=== PATIENT | female | born 1980 | race Caucasian/White ===

== ENCOUNTER 2019-04-15 15:51 | Outpatient (CLI) | payer OTHER, SELFPAY ==
[2019-04-15 16:03] LABS: Basophils Absolute Auto 0.04 K/mm3 (0.00-0.10); Basophils Percent Auto 0.5 % (0.0-1.0); Eosinophils Absolute Auto 0.06 K/mm3 (0.02-0.50); Eosinophils Percent Auto 0.8 % (1.0-6.0); Hematocrit 38.3 % (35.0-49.0); Hemoglobin 12.7 g/dL (12.0-15.0); Immature Granulocyte Absolute 0.05 K/mm3 (0.00-0.00); Immature Granulocyte Percent A 0.6 % (0.0-0.0); Lymphocytes Absolute Auto 1.73 K/mm3 (1.10-4.50); Lymphocytes Percent Auto 21.9 % (18.0-42.0); Mean Corpuscular HGB Conc 33.2 g/dL (32.0-36.0); Mean Corpuscular Hemoglobin 30.2 pg (27.0-31.0); Mean Platelet Volume 9.1 fl (9.2-11.8); Monocytes Percent Auto 8.8 % (2.0-11.0); Neutrophils Absolute Auto 5.3 K/mm3 (1.7-7.2); Neutrophils Percent Auto 67.4 % (50.0-70.0); Platelet Count Result 346 K/mm3 (150-420); Red Blood Count 4.21 M/mm3 (4.20-5.40); Red Cell Distribution Width 12.9 % (11.6-14.4); White Blood Count 7.9 K/mm3 (4.8-10.8)
[2019-04-15 16:23] LABS: D Dimer 0.26 mg/L (0.19-0.50)
[2019-04-15 17:23] LABS: Alanine Aminotransferase 27 U/L (14-59); Albumin Level 3.6 g/dL (3.4-5.0); Alkaline Phosphatase 53 U/L (46-116); Aspartate Amino Transferase 15 U/L (15-37); Bilirubin,Total 0.2 mg/dL (0.00-1.00); Blood Urea Nitrogen 11 mg/dL (7-18); Calcium 9.1 mg/dL (8.5-10.1); Carbon Dioxide 26 mmol/L (21-32); Chloride 103 mmol/L (98-108); Estimated Glomerular Filt Rate > 60; Ferritin 51 ng/mL (8-252); Glucose 78 mg/dL (70-99); Iron 37 ug/dL (50-170); Osmolality Calculated 288 mOsm/kg (285-295); Percent Iron Saturation 10 % (12-57); Sodium 140 mmol/L (136-145); Total Protein 7.2 g/dL (6.4-8.2)
== END 2019-04-15 15:52 | disposition home or self-care (01) ==
LOC: CHSLAB 15:54
PROVIDERS: PCP Internal Medicine; Visit Provider Nurse Practitioner Family
DX: R06.02 Shortness of breath (principal); D64.9 Anemia, unspecified
CPT/HCPCS: 36415; 80053; 82728; 83540; 83550; 85025; 85380

== ENCOUNTER 2019-10-15 11:41 | Outpatient (CLI) | payer OTHER, SELFPAY ==
[2019-10-15 23:57] LABS: SARS-CoV-2 RNA PCR Negative
== END 2019-10-15 11:42 | disposition home or self-care (01) ==
PROVIDERS: PCP Internal Medicine; Visit Provider Internal Medicine
DX: Z20.828 Contact with and (suspected) exposure to other viral communicable diseases (principal)
CPT/HCPCS: 87635; C9803; U0003

== ENCOUNTER 2020-04-22 12:17 | Outpatient (CLI) | payer OTHER, SELFPAY ==
[2020-04-23 00:59] LABS: SARS-CoV-2 RNA PCR Positive
== END 2020-04-22 12:18 | disposition home or self-care (01) ==
LOC: CHSLAB 12:20
PROVIDERS: PCP Internal Medicine; Visit Provider Internal Medicine
DX: U07.1 COVID-19 (principal)
CPT/HCPCS: C9803; U0003; U0005

== ENCOUNTER 2021-08-20 10:20 | Outpatient (CLI) | payer OTHER, SELFPAY ==
--- NOTE | ~2021-08-20 | XR_ITS ---
EXAMINATION: XR hip LT min 2V INDICATION: Left hip pain TECHNIQUE: Two views of the left hip are obtained. COMPARISON: None available FINDINGS: Bone alignment is normal. There is no fracture. There is mild osteoarthritis of the hip. Th e soft tissues are unremarkable. IMPRESSION: 1. Mild osteoarthritis without acute osseous abnormality. Reviewed, dictated and finalized at location B.
--- NOTE | ~2021-08-20 | XR_ITS ---
EXAMINATION: XR lumbar spine 2-3V DATE: 08/20/2021 10:48 INDICATION: Low back pain TECHNIQUE: Anteroposterior and lateral views of the lumbar spine, and cone-down lateral view of the l umbosacral junction were obtained. COMPARISON: None. FINDINGS: There is mild loss of intervertebral disc space height at L5-S1. The vertebral body heights and alignment are normal. There is no fracture. IMPRESSION: 1. Mild lumbar spondylosis without acute findings. Reviewed, dictated and finalized at location B.
== END 2021-08-20 10:21 | disposition home or self-care (01) ==
LOC: CHSIMG 10:22
PROVIDERS: PCP Internal Medicine; Visit Provider Internal Medicine
DX: M25.552 Pain in left hip (principal)
CPT/HCPCS: 72100; 73502

== ENCOUNTER 2021-10-19 09:51 | Outpatient (RCR) | payer OTHER, SELFPAY ==
--- NOTE | 2021-10-19 10:56 | PTOPEVAL1 ---
Evaluation Information Assessment Status Evaluation Diagnosis premmar radiculopathy Onset 06/13/21 Subjective Information patient reports she had a baby back in june. she reports after the baby was born she began having pain in the L hip with getting in the car. she reports the pain would be sharp. she reports she let it go for a while, but now more consistent with any hip moving in, bilateral buttock pain, and pain down the R thigh. she reports sitting with her leg crossed on the R will radiate pain to the brush on the R LE. she reports she has swelling and tenderness in the R foot. she reports she has a history of back issues since she was 17 . she reports she had no had problems since she was 17. she reports she has had a child prior to this june and reports she had no issues. has had xray, no MRI as of this date. Reported Pain Level Pain Score 3: Self Report Assessment PT Clinical Summary mrs. latif presents to skilled PT services for evaluation and treatment of L hip pain and R LE radicular symptoms. she presents this date with signs and symptoms of R L5/S1 radiculopathy and L JUAN LUIS. she would do well to attend skilled PT to improve her objective/functional deficits and progress towards a return to her prior level functional activity performance/quality of life. Plan of Care Interventions Electrical Stimulation,Hot Pack/Cold Pack,Manual Therapy,Neuro Re-education,Patient/Caregiver Educati,Therapeutic Activities,Therapeutic Exercise PT Services Indicated Yes Treatment Frequency and 2x weekly for 12 visits Duration These treatments will address the objective and functional deficits as defined above. The patient will be advanced safely and appropriately in order for the patient to progress towards his/her prior level of function. Additional exercises will be introduced and as well as a comprehensive home exercise program upon discharge, if needed, ?to ensure carryover of functional gains achieved in the clinic. This treatment plan has been reviewed and agreement upon by the patient.
--- NOTE | 2021-12-09 10:50 | PTOPDC ---
Assessment and note entered by JT File, PT Evaluation Information Assessment Status Discharge Diagnosis lubmar radiculopathy Onset 06/13/21 Subjective Information patient reports her back and R LE feel great. she reports she has no pain and no radicular symptoms any longer. however, she reports the L hip continues to feel worse. she reports she is uanble to sit in a butterfly posture due to immobility in the L hip. she reports she also is unable to lui after he kids due to popping and severe pain in the L hip. she reports the pain is the front of the L hip/groin area. Reported Pain Level Pain Score 0,6: Self Report Assessment PT Clinical Summary mrs. latif presents to skilled PT services for her 12th skilled therapy visit this date. as of this date, her lower back pain, and R radicular symptoms are resolved, and she has met all goals for the lower back and R LE. however, she continues to have pain and symptoms in the groin of the L hip that are progressively worsening more than improving. she presnts this date again with signs and symptoms consistent with potential JUAN LUIS or labral pathology of the L hip. she would do well to DC skilled PT this date, and follow up with MD. suggest patient have MRI of the L hip and consult with ortho. Plan of Care Treatment Frequency and DC to MD follow up with suggestion of MRI of the L Duration hip and ortho consult.
== END 2021-12-09 16:40 | disposition home or self-care (01) ==
LOC: CHSPT 09:51
PROVIDERS: PCP Internal Medicine; Visit Provider Internal Medicine
DX: M25.552 Pain in left hip (principal)
CPT/HCPCS: 97014; 97110; 97140; 97161; G0283

== ENCOUNTER 2021-10-22 09:30 | Outpatient (CLI) | payer OTHER, SELFPAY ==
--- NOTE | ~2021-10-22 | XR_ITS ---
EXAMINATION: XR foot RT min 3V DATE: 10/22/2021 09:55 INDICATION: Right foot pain TECHNIQUE: Dorsoplantar, lateral, and 2 oblique views of the right foot were obtained. COMPARISON: 12/10/2018 FINDINGS: There is no fracture, dislocation, or subluxation. The joint spaces and soft tissues are no rmal. A plantar calcaneal enthesophyte is noted. IMPRESSION: 1. No acute osseous abnormality. Reviewed, dictated and finalized at location B.
== END 2021-10-22 09:31 | disposition home or self-care (01) ==
PROVIDERS: PCP Internal Medicine; Visit Provider Nurse Practitioner Family
DX: M79.671 Pain in right foot (principal)
CPT/HCPCS: 73630

== ENCOUNTER 2021-11-04 08:47 | Outpatient (CLI) | payer OTHER, SELFPAY ==
--- NOTE | ~2021-11-04 | US_ITS ---
EXAMINATION: US thyroid DATE: 11/04/2021 09:30 INDICATION: Abnormal thyroid function. TECHNIQUE: Multiple ultrasound images of the thyroid were obtained. COMPARISON: Ultrasound 01/19/17 FINDINGS: The right thyroid lobe measures 6.1 x 2.0 x 1.5 cm. The left thyroid lobe measures 6.3 x 2.5 x 1.9 c m. In the right thyroid lobe, there is a 1.6 cm solid, hypoechoic, wider than tall nodule with chalino h margin without echogenic foci (TR4), new from 01/19/17. In the left thyroid lobe, there is a 3.5 cm solid, hypoechoic, wider than tall nodule with irregular margin and punctate echogenic foci (TR5), in creased from 1.8 cm on 01/19/17. IMPRESSION: 1. Multinodular goiter. Ultrasound-guided fine-needle aspiration of both nodules is recommended. Reviewed, dictated and finalized at location A. IMPRESSION: 1. Multinodular goiter. Ultrasound-guided fine-needle aspiration of both nodule s is recommended.
== END 2021-11-04 08:48 | disposition home or self-care (01) ==
LOC: CHSIMG 08:48
PROVIDERS: PCP Internal Medicine; Visit Provider Internal Medicine
DX: R94.6 Abnormal results of thyroid function studies (principal)
CPT/HCPCS: 76536

== ENCOUNTER 2021-12-30 11:44 | Outpatient (CLI) | payer OTHER, SELFPAY ==
--- NOTE | ~2021-12-30 | XR_ITS ---
EXAMINATION: XR chest 2V 12/30/2021 12:12 INDICATION: Chest pain. Dizziness. PROCEDURE: 2 view chest COMPARISON: 02/01/2017 FINDINGS: The lungs are clear. The cardiomediastinal silhouette is within normal limits. There are no pleural effusions. There is no pneumothorax suspected. There are chronic mild superior endplate compression deformities of the mid thoracic spine. IMPRESSION: 1: NO ACUTE CARDIOPULMONARY DISEASE. Reviewed, dictated and finalized at location A. OGEN TREATER
[2021-12-30 11:58] LABS: Basophils Absolute Auto 0.05 K/mm3 (0.00-0.10); Basophils Percent Auto 0.9 % (0.0-1.0); Eosinophils Absolute Auto 0.14 K/mm3 (0.02-0.50); Eosinophils Percent Auto 2.5 % (1.0-6.0); Hematocrit 43.1 % (35.0-49.0); Hemoglobin 13.9 g/dL (12.0-15.0); Immature Granulocyte Absolute 0.02 K/mm3 (0.00-0.00); Immature Granulocyte Percent A 0.4 % (0.0-0.0); Lymphocytes Absolute Auto 1.78 K/mm3 (1.10-4.50); Lymphocytes Percent Auto 31.6 % (18.0-42.0); Mean Corpuscular HGB Conc 32.3 g/dL (32.0-36.0); Mean Corpuscular Hemoglobin 29.8 pg (27.0-31.0); Mean Corpuscular Volume 92.3 fL (78.0-102.0); Mean Platelet Volume 9.3 fl (9.2-11.8); Monocytes Absolute Auto 0.78 K/mm3 (0.10-0.90); Monocytes Percent Auto 13.8 % (2.0-11.0); Neutrophils Absolute Auto 2.9 K/mm3 (1.7-7.2); Neutrophils Percent Auto 50.8 % (50.0-70.0); Platelet Count Result 330 K/mm3 (150-420); Red Blood Count 4.67 M/mm3 (4.20-5.40); Red Cell Distribution Width 12.3 % (11.6-14.4); White Blood Count 5.6 K/mm3 (4.8-10.8)
[2021-12-30 12:08] LABS: D Dimer 0.19 mg/L (0.19-0.50)
[2021-12-30 12:34] LABS: Alanine Aminotransferase 23 U/L (14-59); Alkaline Phosphatase 76 U/L (46-116); Anion Gap 6 mmol/L (8-16); Aspartate Amino Transferase 12 U/L (15-37); Bilirubin,Total 0.3 mg/dL (0.00-1.00); Blood Urea Nitrogen 13 mg/dL (7-18); Calcium 8.8 mg/dL (8.5-10.1); Carbon Dioxide 31 mmol/L (21-32); Chloride 105 mmol/L (98-108); Creatine Kinase 64 U/L (26-192); Estimated Glomerular Filt Rate > 60; Glucose 89 mg/dL (70-99); NT Pro B Type Natriuretic Pept 27 pg/mL (0-125); Osmolality Calculated 293 mOsm/kg (285-295); Potassium 4.2 mmol/L (3.5-5.1); Sodium 142 mmol/L (136-145); Total Protein 7.9 g/dL (6.4-8.2)
[2021-12-30 12:39] LABS: Troponin I < 4.0 ng/L (0.00-60.4)
== END 2021-12-30 11:45 | disposition home or self-care (01) ==
LOC: CHSLAB 11:45
PROVIDERS: PCP Internal Medicine; Visit Provider Internal Medicine
DX: R42 Dizziness and giddiness (principal); R07.9 Chest pain, unspecified
CPT/HCPCS: 36415; 71046; 80053; 82550; 82553; 83880; 84484; 85025; 85380

== ENCOUNTER 2022-01-08 09:01 | Outpatient (CLI) | payer OTHER, SELFPAY | END 2022-01-08 09:02 | disposition home or self-care (01) | LOC: CHSIMG 09:02 | PROVIDERS: PCP Internal Medicine; Visit Provider Internal Medicine | DX: M25.552 Pain in left hip (principal) | CPT/HCPCS: 73721 ==

== ENCOUNTER 2022-01-24 09:31 | Outpatient (CLI) | payer OTHER, SELFPAY ==
--- NOTE | ~2022-01-24 | MR_ITS ---
EXAMINATION: MR hip LT wo con DATE: 01/24/2022 11:41 INDICATION: Persistent left hip pain TECHNIQUE: Magnetic resonance imaging (MRI) of the left hip was performed without intravenous contra st. Sequences included full-field axial PD-weighted FS FSE and T1-weighted FSE, coronal of the pelvis with PD-weighted FS FSE, T2-weighted FSE and T1-weighted FSE, small field of view of the left hip w ith axial PD-weighted FS FSE, sagittal PD-weighted FS FSE, coronal PD-weighted FS FSE and coronal T2 weighted FSE. Additional radial T1-weighted FGR oriented orthogonal to the acetabular rim were obtai nelia for evaluation of the labrum. COMPARISON: None FINDINGS: Bones/labrum/cartilage: Alignment is normal. No fracture, avascular necrosis or pathologic marrow replacing process. Moderat e to severe osteoarthritis at the left hip with full/near full-thickness cartilage loss with underlyi ng subarticular edema-like signal change at the anterosuperior acetabulum and juxtaposed anterosuperi or aspect of the femoral head. Additional deep chondral ulceration at the posterior aspect of the rig ht femoral head. Moderate size marginal osteophytes about the left femoral head. There is a tear of t he superolateral to posterior superior left acetabular labrum. Less severe osteoarthritis at the righ t hip with mild partial-thickness cartilage loss anterosuperiorly with mild subarticular cystic santana e at the anterosuperior right acetabulum. Moderate disc height loss with degenerative endplate change s at L5-S1. 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 Moderate left and mild right sacroi liac osteoarthritis. Small sclerotic likely bone island at the left posterior iliac spine. Fluid: Is a large amount fluid at the right hip joint. Small left hip joint effusion. Mild increased fluid s ignal underlying the right greater trochanteric insertion of the right gluteus medius tendon consiste nt with mild right gluteus medius bursitis. Soft tissues: Normal and symmetric muscle bulk and signal in the pelvis and visualized proximal thighs. Mild tendin opathy without tear at the anterior right gluteus medius tendon. The bilateral iliopsoas, remaining g luteal and proximal hamstring tendons are normal. Tiny nabothian cysts at the cervix and small bilate ral ovarian follicles the largest on the right measuring 1.4 cm. Limited evaluation of visceral organ s of the pelvis is otherwise unremarkable. No pathologically enlarged pelvic/inguinal lymphadenopath y. IMPRESSION: 1. Moderate to severe left hip osteoarthritis with tear of the superolateral to posterior superior le ft acetabular labrum and likely reactive small left hip joint effusion. 2. Mild right and moderate left sacroiliac osteoarthritis. 3. Mild right gluteus medius medius bursitis with mild tendinopathy without discrete tear of the ante rior right gluteus medius tendon. 4. Moderate lumbosacral spondylosis. Reviewed, dictated and finalized at location A. R AND GAS HELPER IMPRESSION: 1. Moderate to severe left hip osteoarthritis with tear of the superolateral to posterior superior left acetabular labrum and likely reactive small left hip j oint effusion. 2. Mild right and moderate left sacroiliac osteoarthritis. 3. Mild right gluteus medius medius bursitis with mild tendinopathy without dis crete tear of the anterior right gluteus medius tendon. 4. Moderate lumbosacral spondylosis.
== END 2022-01-24 09:32 | disposition home or self-care (01) ==
PROVIDERS: PCP Internal Medicine; Visit Provider Internal Medicine
DX: M53.3 Sacrococcygeal disorders, not elsewhere classified (principal); M47.896 Other spondylosis, lumbar region; M16.0 Bilateral primary osteoarthritis of hip
CPT/HCPCS: 73721

== ENCOUNTER 2022-05-05 16:19 | Outpatient (CLI) | payer OTHER, SELFPAY ==
--- NOTE | ~2022-05-05 | XR_ITS ---
AP and oblique views of the left ribs Clinical History: Pain Findings: No rib fracture is seen. Osseous alignment is anatomic. Lungs are clear, without focal cons olidation or pleural effusion. Cardiomediastinal contour is within normal limits. Soft tissues are un remarkable. Impression: No rib fracture is seen. Reviewed, dictated and finalized at [facility]. Impression: No rib fracture is seen.
[2022-05-05 16:48] LABS: Basophils Absolute Auto 0.05 K/mm3 (0.00-0.10); Basophils Percent Auto 0.6 % (0.0-1.0); Eosinophils Absolute Auto 0.21 K/mm3 (0.02-0.50); Eosinophils Percent Auto 2.5 % (1.0-6.0); Hematocrit 38.7 % (35.0-49.0); Hemoglobin 12.5 g/dL (12.0-15.0); Immature Granulocyte Absolute 0.03 K/mm3 (0.00-0.00); Immature Granulocyte Percent A 0.4 % (0.0-0.0); Lymphocytes Absolute Auto 2.83 K/mm3 (1.10-4.50); Lymphocytes Percent Auto 33.3 % (18.0-42.0); Mean Corpuscular HGB Conc 32.3 g/dL (32.0-36.0); Mean Corpuscular Hemoglobin 29.6 pg (27.0-31.0); Mean Corpuscular Volume 91.7 fL (78.0-102.0); Monocytes Absolute Auto 0.71 K/mm3 (0.10-0.90); Monocytes Percent Auto 8.4 % (2.0-11.0); Neutrophils Absolute Auto 4.7 K/mm3 (1.7-7.2); Neutrophils Percent Auto 54.8 % (50.0-70.0); Platelet Count Result 401 K/mm3 (150-420); Red Blood Count 4.22 M/mm3 (4.20-5.40); Red Cell Distribution Width 13.3 % (11.6-14.4); White Blood Count 8.5 K/mm3 (4.8-10.8)
[2022-05-05 17:24] LABS: Alanine Aminotransferase 17 U/L (14-59); Albumin Level 4.2 g/dL (3.4-5.0); Alkaline Phosphatase 86 U/L (46-116); Anion Gap 9 mmol/L (8-16); Aspartate Amino Transferase 15 U/L (15-37); Bilirubin,Total 0.2 mg/dL (0.00-1.00); Blood Urea Nitrogen 12 mg/dL (7-18); Calcium 8.8 mg/dL (8.5-10.1); Carbon Dioxide 29 mmol/L (21-32); Chloride 104 mmol/L (98-108); Estimated Glomerular Filt Rate > 60; Glucose 81 mg/dL (70-99); Osmolality Calculated 292 mOsm/kg (285-295); Potassium 4.4 mmol/L (3.5-5.1); Sodium 142 mmol/L (136-145); Total Protein 7.6 g/dL (6.4-8.2)
[2022-05-05 17:28] LABS: CRP < 0.5 mg/dL (0.0-0.9)
== END 2022-05-05 16:20 | disposition home or self-care (01) ==
LOC: CHSLAB 16:22
PROVIDERS: PCP Internal Medicine; Visit Provider Nurse Practitioner Family
DX: R07.81 Pleurodynia (principal); R94.31 Abnormal electrocardiogram [ECG] [EKG]; R07.9 Chest pain, unspecified
CPT/HCPCS: 36415; 71100; 80053; 83735; 85025; 86140

== ENCOUNTER 2023-03-16 09:46 | Outpatient (CLI) | payer OTHER, SELFPAY ==
[2023-03-16 10:57] LABS: Free T4 Free Thyroxine 0.65 ng/dL (0.76-1.46); Thyroid Stimulating Hormone 0.05 uIU/mL (0.36-3.74)
[2023-03-19 11:03] LABS: Total Triiodothyronine (T3) 136.3 ng/dL (76-181)
== END 2023-03-16 09:47 | disposition home or self-care (01) ==
LOC: CHSLAB 09:50
PROVIDERS: PCP Internal Medicine
DX: E04.1 Nontoxic single thyroid nodule (principal); R79.89 Other specified abnormal findings of blood chemistry
CPT/HCPCS: 36415; 84439; 84443; 84480

== ENCOUNTER 2023-06-02 12:08 | Outpatient (CLI) | payer OTHER, SELFPAY ==
[2023-06-02 12:36] LABS: Basophils Absolute Auto 0.05 K/mm3 (0.00-0.10); Basophils Percent Auto 0.4 % (0.0-1.0); Eosinophils Percent Auto 0.9 % (1.0-6.0); Hematocrit 38.7 % (35.0-49.0); Hemoglobin 12.5 g/dL (12.0-15.0); Immature Granulocyte Absolute 0.05 K/mm3 (0.00-0.00); Immature Granulocyte Percent A 0.4 % (0.0-0.0); Lymphocytes Absolute Auto 2.07 K/mm3 (1.10-4.50); Lymphocytes Percent Auto 17.7 % (18.0-42.0); Mean Corpuscular HGB Conc 32.3 g/dL (32-36); Mean Corpuscular Hemoglobin 29.1 pg (27.0-31.0); Mean Platelet Volume 9.3 fl (9.2-11.8); Monocytes Absolute Auto 1.08 K/mm3 (0.10-0.90); Monocytes Percent Auto 9.2 % (2.0-11.0); Neutrophils Absolute Auto 8.37 K/mm3 (1.70-7.20); Neutrophils Percent Auto 71.4 % (50.0-70.0); Platelet Count Result 358 K/mm3 (150-420); Red Cell Distribution Width 13.4 % (11.6-14.4); White Blood Count 11.7 K/mm3 (4.8-10.8)
[2023-06-02 12:39] LABS: Appearance Urine Clear (Clear); Bilirubin Urine Negative (Negative); Blood Urine Trace-intact (Negative); Color Urine Light Yellow (Yellow); Glucose Urine UA Negative (Negative); Ketones Urine Negative (Negative); Leukocyte Esterase Ur 1+ (Negative); Nitrate Urine Negative (Negative); Protein Urine Negative (Negative); Specific Grav Ur <= 1.005 (1.010-1.020); Urobilinogen Urine 0.2 mg/dL (0.2-1.0)
[2023-06-02 12:44] LABS: Add Urine Microscopic? YES; Bacteria Urine Trace /hpf; RBC Urine 0-2 /hpf (0-2); Squamous Epithelial Cell Urine Few /hpf (Few); WBC Urine 0-3 /hpf (0-3)
[2023-06-02 13:46] LABS: Alanine Aminotransferase 26 U/L (14-59); Albumin Level 3.9 g/dL (3.4-5.0); Alkaline Phosphatase 73 U/L (46-116); Anion Gap 9 mmol/L (4-12); Aspartate Amino Transferase 14 U/L (15-37); Bilirubin,Total 0.6 mg/dL (0.00-1.00); Blood Urea Nitrogen 7 mg/dL (7-18); Calcium 8.6 mg/dL (8.5-10.1); Carbon Dioxide 28 mmol/L (21-32); Chloride 104 mmol/L (98-108); Cholesterol 174 mg/dL (0-200); Estimated Glomerular Filt Rate > 60; Free T3 3.29 pg/mL (2.18-3.98); Free T4 Free Thyroxine 0.78 ng/dL (0.76-1.46); Glucose 85 mg/dL (70-99); HDL Direct 51 mg/dL (40-60); LDL Cholesterol Calculated 91 mg/dL (<130); Osmolality Calculated 289 mOsm/kg (285-295); Potassium 4.1 mmol/L (3.5-5.1); Sodium 141 mmol/L (136-145); Thyroid Stimulating Hormone 0.03 uIU/mL (0.36-3.74); Total Protein 7.2 g/dL (6.4-8.2); Triglycerides 158 mg/dL (0-150)
[2023-06-05 15:48] LABS: Anti Cyclic Citrullinated Pept 40 UNITS
[2023-06-06 10:15] LABS: Uric Acid 4.4 mg/dL (2.6-6.0)
== END 2023-06-02 12:09 | disposition home or self-care (01) ==
LOC: CHSLAB 12:10
PROVIDERS: PCP Internal Medicine; Visit Provider Internal Medicine
DX: E78.5 Hyperlipidemia, unspecified (principal); M13.0 Polyarthritis, unspecified; G89.29 Other chronic pain
CPT/HCPCS: 36415; 80053; 80061; 81001; 84439; 84443; 84481; 84550; 85025; 86038; 86039; 86140; 86200

== ENCOUNTER 2023-06-19 12:50 | Outpatient (CLI) | payer OTHER, SELFPAY ==
--- NOTE | 2023-06-19 12:57 | ECG_ITS ---
SEE SCANNED COPY FOR CONFIRMED REPORT MTDD
== END 2023-06-19 12:51 | disposition home or self-care (01) ==
LOC: CHSCARD 12:53
PROVIDERS: PCP Internal Medicine; Visit Provider Internal Medicine
DX: R00.2 Palpitations (principal); R00.1 Bradycardia, unspecified; R94.31 Abnormal electrocardiogram [ECG] [EKG]
CPT/HCPCS: 93005

== ENCOUNTER 2023-10-19 14:13 | Outpatient (CLI) | payer OTHER, SELFPAY ==
--- NOTE | ~2023-10-19 | XR_ITS ---
EXAMINATION: XR chest 2V 10/19/2023 15:04 INDICATION: Preop PROCEDURE: 2 view chest COMPARISON: 12/30/2021 FINDINGS: The lungs are clear. The cardiomediastinal silhouette is within normal limits. There are no pleural effusions. There is no pneumothorax suspected. IMPRESSION: 1: NO ACUTE CARDIOPULMONARY DISEASE. Reviewed, dictated and finalized at location B.
== END 2023-10-19 14:14 | disposition home or self-care (01) ==
PROVIDERS: PCP Internal Medicine; Visit Provider Internal Medicine
DX: Z01.818 Encounter for other preprocedural examination (principal)
CPT/HCPCS: 71046

== ENCOUNTER 2024-01-29 14:00 | Outpatient (CLI) | payer OTHER, SELFPAY ==
--- NOTE | ~2024-01-29 | MM_ITS ---
EXAMINATION: MM screening valery BI w suhail HISTORY: Screening TECHNIQUE: Craniocaudal and mediolateral oblique 3-D tomosynthesis images were obtained and synthetic 2-D images were generated. CAD analysis was submitted and interpreted. COMPARISON: No prior mammogram is available for comparison at this institution. BREAST PARENCHYMAL COMPOSITION: Not Dense: The breasts are almost entirely fatty. FINDINGS: There is no evidence of suspicious mass, calcification, or architectural distortion to sugg est malignancy in either breast. There has been no suspicious interval change. IMPRESSION: 1. No mammographic evidence of malignancy. 2. Recommend routine screening mammography in one year. BI-RADS Category 1: Negative Reviewed, dictated and finalized at location B. HIATRIC NURSE
== END 2024-01-29 14:01 | disposition home or self-care (01) ==
LOC: CHSIMG 14:01
PROVIDERS: PCP Internal Medicine; Visit Provider Internal Medicine
DX: Z12.31 Encounter for screening mammogram for malignant neoplasm of breast (principal)
CPT/HCPCS: 77063; 77067

== ENCOUNTER 2024-06-27 18:22 | Emergency (ER) | payer OTHER, SELFPAY ==
--- OUTSIDE RECORDS SUMMARY | 2024-06-27 18:25 | XMS_ITS | Referral Summary ---
Author Organization [facility] Address [address] [place] [address] Care Team Providers Care Addiction Counselor Name Role Phone Jordan Mann MD Primary Care Provider [phone] Ottoniel aB MD Unavailable [phone] Allergies Active Allergy Reactions Criticality Noted Date Comments Adhesive Itching Low 01/17/2024 Morphine Unknown,Hives,Rash Medium 03/03/2017 Sutures Redness Low 01/17/2024 Absorbable sutures caused redness/irritation Medications sertraline (ZOLOFT) 50 mg tablet Take 1 tablet (50 mg total) by mouth daily 03/07/2022 Active methIMAzole (TAPAZOLE) 5 mg tablet Take 3 tablets (15 mg total) by mouth daily 08/01/2023 Active HYDROcodone-ozzy taminophen (NORCO) 5-325 mg per tabletIndicatio ns:Pain Take 1-2 tablets by mouth every 4 (four) hours as needed for pain 30 tablet 01/10/2024 Active Active Problems Problem Noted Date Diagnosed Date Rupture of operation wound 01/16/2024 Surgical wound, non healing 01/05/2024 Wound dehiscence, surgical 01/05/2024 Aftercare following right hip joint replacement surgery 11/30/2023 Multilevel spine pain 04/13/2023 Hip abductor tendinitis, left 04/13/2023 History of arthroplasty of left hip 04/13/2023 Aftercare following left hip joint replacement s urgery 08/11/2022 Nodular thyroid disease 03/03/2017 Assessment & Plan (04/04/2017 9:22 AM BUTTON PUNCHER): Differential diagnosis would include benign nodule (macrofollicular or adenomatoid/hyperplastic nodules, colloid adenomas, nodular goiter, and Richelle's thyroiditis) vs thyroid carcinoma ( follicular , papillary ) FNA indicated and performed If benign, will follow up with serial ultrasound Otherwise, patient to follow up with Dr Martinez to consider surgery . Assessment & Plan (03/03/2017 12:22 PM BUTTON PUNCHER): Patient is noted to have a dominant solid nodule in the left lobe of the thyroid measuring 1.6 x 1.1 x 1.8 cm. There were also a couple other hypoechoic nodules reported in question whether there is possible represent punctate calcifications. My examination of this patient is otherwise unremarkable. I will schedule patient for an ultrasound-guided fine-needle aspiration biopsy. Further treatment recommendations pending completed workup. Resolved Problems Problem Noted Date Diagnosed Date Resolved Date Primary osteoarthritis of right hip 10/21/2023 12/25/2023 Primary osteoarthritis of left hip 06/22/2022 08/11/2022 Social History Tobacco Use Types Packs/Day Years Used Date Smoking Tobacco: Former Cigarettes Q uit: 09/13/2016 Smokeless Tobacco: Never Alcohol Use Standard Drinks/Week Comments Yes 0 (1 standard drink = 0.6 oz pur e alcohol) AUDIT-C Answer Date Recorded Q1: How often do you have a drink containing alc ohol? Monthly or less 01/17/2024 Q2: How many drinks containi ng alcohol do you have on a typical day when you are drinking? 1 or 2 01/17/2024 Q3: How often do you have si x or more drinks on one occasion? Never 01/17/2024 Personal Safety Answer Date Recorded Have you ever been in or are you currently in a harmful physical or emotional relationship or is someone making you feel afraid or unsafe? Denies 01/17/2024 Comments No Sex and Gender Information Value Date Recorded Sex Assigned at Not on file Legal Sex Female 3:18 PM BUTTON PUNCHER Gender Identity Female 04/19/2023 11:37 AM BUTTON PUNCHER Sexual Orientation Straight 04/19/2023 11 :37 AM BUTTON PUNCHER Last Filed Vital Signs Vital Sign Reading Time Taken Comments Blood Pressure 122/79 01/23/2024 11:35 AM BUTTON PUNCHER Pulse 80 01/23/2024 11:35 AM BUTTON PUNCHER Temperature 36.4 C (97.6 F) 01/17/2024 3:00 PM BUTTON PUNCHER Respiratory Rate 18 01/17/2024 3:00 PM BUTTON PUNCHER Oxygen Saturation 99% 01/17/2024 3:00 PM BUTTON PUNCHER Inhaled Oxygen Concentration - - Weight 105.7 kg (233 lb) 01/23/2024 11:35 AM BUTTON PUNCHER Height 175.3 cm (5' 9 ) 01/23/2024 11:35 AM BUTTON PUNCHER Body Mass Index 34.41 01/23/2024 11:35 AM BUTTON PUNCHER Plan of Treatment Not on file Medical Devices Implanted Type Area Elevator Repairer Device Identifier Shelf Expiration Date Model / Serial / Lot [employer] [place] 56mm Sector Hip Shell Acetabular Gription Sterile Latex Free [id number] - [id number] Implanted:Qty: 1 on 07/06/2022 by Ottoniel Ba MD at [facility] Left: Hip [employer] 05/13/2032 [id number] / / [id number] [employer] [place] 56mm 36mm Hip Neutral Liner Acetabular Altrx Sterile Latex Free [id number] - [id number] Implanted:Qty: 1 on 07/06/2022 by Ottoniel Ba MD at [facility] Left: Hip [employer] 04/13/2027 [id number] / / [id number] [employer] [place] 6.5mm 25mm Acetabular Cancellous Screw Bone Sterile 1217-25-500 - [id number] Implanted:Qty: 1 on 07/06/2022 by Ottoniel Ba MD at [facility] Left: Hip [employer] 01/13/2032 1217-25-500 / / [id number] [employer] Actis 99mm Collar Hip 2 01/26 High Offset Taper Stem Femoral [id number] - [id number] Implanted:Qty: 1 on 07/06/2022 by Ottoniel Ba MD at [facility] Left: Hip [employer] 02/13/2032 [id number] / / [id number] [employer] Articul/Grant 36mm Cementless Hip +8.5mm 12/14 Taper Head Femoral Latex Free 1362-36330 - [id number] Implanted:Qty: 1 on 07/06/2022 by Ottoniel Ba MD at [facility] Left: Hip [employer] 05/14/2027 1365-36-330 / / [id number] [employer] Articul/Grant 36mm Cementless Hip +8.5mm 12/14 Taper Head Femoral Latex Free 1367-36330 - [id number] Implanted:Qty: 1 on 11/01/2023 by Ottoniel Ba MD at [facility] Right: Hip [employer] [id number] 08/12/2028 1364-36330 / / [id number] [employer] [place] 54mm Sector Hip Shell Acetabular Gription Sterile Latex Free [id number] - [id number] Implanted:Qty: 1 on 11/01/2023 by Ottoniel Ba MD at [facility] Right: Hip [employer] [id number] 07/13/2033 [id number] / / [id number] [employer] [place] 54mm 36mm Hip Neutral Liner Acetabular Altrx Sterile Latex Free [id number] - [id number] Implanted:Qty: 1 on 11/01/2023 by Ottoniel Ba MD at [facility] Right: Hip [employer] [id number] 09/12/2028 [id number] / / [id number] [employer] [place] 6.5mm 25mm Acetabular Cancellous Screw Bone Sterile 1217-25-500 - [id number] Implanted:Qty: 1 on 11/01/2023 by Ottoniel Ba MD at [facility] Right: Hip [employer] [id number] 07/13/2033 1217-25-500 / / [id number] [employer] Actis 99mm Collar Hip 2 01/26 High Offset Taper Stem Femoral [id number] - [id number] Implanted:Qty: 1 on 11/01/2023 by Ottoniel Ba MD at [facility] Right: Hip [employer] [id number] 03/15/2032 [id number] / / [id number] Insurance [place] A[place] Advance Directives For more information, please contact: [phone] * Full Code (Latest Code Status on File) Date Activated Date Inactivated Comments 11/01/2023 10:36 AM 11/01/2023 7:05 PM * Full Code Date Activated Date Inactivated Comments 07/06/2022 12:22 PM 07/06/2022 7:53 PM Care Teams Addiction Counselor Relationship Specialty Start Date End Date Jordan Mann MD PCP - General Internal Medicine 10/23/21 Ottoniel Ba MD [address] [place] [address] DR MENDOZA [address] [place] [id number] Surgeon Orthopedic Surgery 07/06/22
--- OUTSIDE RECORDS SUMMARY | 2024-06-27 18:25 | XMS_ITS | Encounter Summary ---
Author Organization [facility] Address [address] [place] [address] Phone Care Team Providers Care Soda Fountain Manager Name Role Phone Jordan Mann MD Primary Care Provider [phone] Jordan Mann MD Primary Care Provider [phone] Ottoniel Ba MD Unavailable [phone] Encounter Details Date Type Department Care Team (Late st Contact Info) Description 04/04/2017 Orders Only [facility] ProviderJoe MD [address] [place] [id number] Social History Tobacco Use Types Packs/Day Years Used Date Smoking Tobacco: Former Cigarettes Q uit: 09/13/2016 Smokeless Tobacco: Never Alcohol Use Standard Drinks/Week Comments Yes 0 (1 standard drink = 0.6 oz pur e alcohol) Comments Unknown Sex and Gender Information Value Date Recorded Sex Assigned at Not on file Legal Sex Female 3:18 PM ASSAULT BOAT [employer] Gender Identity Female 04/19/2023 11:37 AM ASSAULT BOAT [employer] Sexual Orientation Straight 04/19/2023 11 :37 AM ASSAULT BOAT [employer] documented as of this encounter Plan of Treatment Not on file documented as of this encounter Procedures Procedure Name Priority Date/Time Associated Diagnosis Comments CYTOLOGY 04/04/2017 12:00 AM ASSAULT BOAT [employer] documented in this encounter Results * CYTOLOGY (04/04/2017 12:00 AM ASSAULT BOAT [employer]) Narrative 04/04/2017 12:00 AM ASSAULT BOAT [employer] Ordered by an unspecified provider. us Historical Provider LAB CYTOLOGY ORDERABLES F inal Result documented in this encounter Visit Diagnoses Not on filedocumented in this encounter Care Teams Soda Fountain Manager Relationship Specialty Start Date End Date Jordan Mann MD PCP - General Internal Medicine 02/01/17 10/22/21 Jordan Mann MD PCP - General Internal Medicine 10/23/21 Ottoniel Ba MD [address] [place] [address] [place] [address] Surgeon Orthopedic Surgery 07/06/22 documented as of this encounter
--- OUTSIDE RECORDS SUMMARY | 2024-06-27 18:25 | XMS_ITS | Clinical Summary ---
Author Organization [facility] Address [address] [place] [address] Care Team Providers Care Vegetable Buncher Name Role Phone Jordan Mann MD Primary Care Provider [phone] Ottoniel Ba MD Unavailable [phone] Allergies Active Allergy Reactions Criticality Noted Date [...] 03/03/2017 Assessment & Plan (04/04/2017 9:22 AM HEMATOLOGY TECHNICIAN): Differential diagnosis would include benign nodule (macrofollicular or adenomatoid/hyperplastic nodules, colloid adenomas, nodular goiter, and Richelle's thyroiditis) vs thyroid carcinoma ( follicular , papillary ) FNA indicated and performed If benign, will follow up with serial ultrasound Otherwise, patient to follow up with Dr Martinez to consider surgery . Assessment & Plan (03/03/2017 12:22 PM HEMATOLOGY TECHNICIAN): Patient is noted to have a dominant [...] Primary osteoarthritis of left hip 06/22/2022 08/11/2022 Surgical History Surgery Date Site/Laterality Comments FL FLUORO GUIDED INJECTION HIP LEFT 04/01/2022 Left DILATION AND CURETTAGE OF UTERUS TUBAL LIGATION FLUORO GUIDED INJECTION HIP RIGHT 07/20/2023 Right JOINT REPLACEMENT 07/06/2022 Left hip TOTAL HIP ARTHROPLASTY 11/01/2023 Right HIP SURGERY 01/10/2024 Right I & D right hip Medical History Medical History Date Comments Anxiety Slow (sinus) heartbeat patient s tated her heart rate was around 58-60 PONV (postoperative nausea and vomiting) Hypothyroidism Family History Medical History Relation Name Comments Cancer Maternal Grandfather Cancer Maternal Grandmother Cancer Mother's Sister Relation Name Status Comments Maternal Grandfather Maternal Grandmother Mother's Sister Social History Tobacco Use Types Packs/Day Years [...] on file Legal Sex Female 3:18 PM HEMATOLOGY TECHNICIAN Gender Identity Female 04/19/2023 11:37 AM HEMATOLOGY TECHNICIAN Sexual Orientation Straight 04/19/2023 11 :37 AM HEMATOLOGY TECHNICIAN Obstetrics History Last Filed Vital Signs Vital Sign Reading Time Taken Comments Blood Pressure 122/79 01/23/2024 11:35 AM HEMATOLOGY TECHNICIAN Pulse 80 01/23/2024 11:35 AM HEMATOLOGY TECHNICIAN Temperature 36.4 C (97.6 F) 01/17/2024 3:00 PM HEMATOLOGY TECHNICIAN Respiratory Rate 18 01/17/2024 3:00 PM HEMATOLOGY TECHNICIAN Oxygen Saturation 99% 01/17/2024 3:00 PM HEMATOLOGY TECHNICIAN Inhaled Oxygen Concentration - - Weight 105.7 kg (233 lb) 01/23/2024 11:35 AM HEMATOLOGY TECHNICIAN Height 175.3 cm (5' 9 ) 01/23/2024 11:35 AM HEMATOLOGY TECHNICIAN Body Mass Index 34.41 01/23/2024 11:35 AM HEMATOLOGY TECHNICIAN Plan of Treatment Health Maintenance Due Date Last Done Comments Breast Cancer Screening-Mammogram 1980 Hepatitis C Screening 1980 Varicella Vaccines (1 of 2 - 13+ 2-dose series) 1993 Regular Well Visit/Exam 18-64 1998 Depression Screening 04/04/2018 04/04/2017 Cervical Cancer Screening 07/15/2020 07/16/2019 Influenza Vaccine (Season Ended) 2024 11/13/2019 DTaP/Tdap/Td Vaccine (4 - Td or Tdap) 04/22/2031 04/21/2021, 09/13/2019, 06/11/2018 Hepatitis B Screening Completed 07/18/2018 , 06/21/2018 HPV Vaccines Aged Out No longer eligi ble based on patient's age to complete this topic Pneumococcal vaccine <65 Aged Out No longer eligible based on patient's age to complete this topic Medical Devices Implanted Type Area Test Lead Device Identifier Shelf Expiration Date Model / Serial / Lot [employer] [place] 56mm Sector Hip Shell Acetabular Gription Sterile Latex Free [id number] - [id number] Implanted:Qty: 1 on 07/06/2022 by Ottoniel Ba MD at [facility] Left: Hip [employer] 05/13/2032 [id number] / / [id number] [employer] [place] 56mm 36mm Hip Neutral Liner Acetabular Altrx Sterile Latex Free [id number] - [id number] Implanted:Qty: 1 on 07/06/2022 by Ottoniel Ba MD at [facility] Left: Hip [employer] 04/13/2027 [id number] / / [id number] [employer] [place] 6.5mm 25mm Acetabular Cancellous Screw Bone Sterile 1217-25-500 - [id number] Implanted:Qty: 1 on 07/06/2022 by Ottoniel Ba MD at [facility] Left: Hip [employer] 01/13/2032 1217-25-500 / / [id number] [employer] [place] 99mm Collar Hip 2 01/26 High Offset Taper Stem Femoral [id number] - [id number] Implanted:Qty: 1 on 07/06/2022 by Ottoniel Ba MD at [facility] Left: Hip [employer] 02/13/2032 [id number] / / [id number] [employer] Articul/Grant 36mm Cementless Hip +8.5mm 12/14 Taper Head Femoral Latex Free 1365-36330 - [id number] Implanted:Qty: 1 on 07/06/2022 by Ottoniel Ba MD at [facility] Left: Hip [employer] 05/14/2027 1365-36-330 / / [id number] [employer] Articul/[place] 36mm Cementless Hip +8.5mm 12/14 Taper Head Femoral Latex Free 1365-36-330 - [id number] Implanted:Qty: 1 on 11/01/2023 by Ottoniel Ba MD at [facility] Right: Hip [employer] [id number] 08/12/2028 1365-36-330 / / [id number] [employer] [place] 54mm Sector Hip Shell Acetabular Gription Sterile Latex Free [id number] - [id number] Implanted:Qty: 1 on 11/01/2023 by Ottoniel Ba MD at [facility] Right: Hip [employer] [id number] 07/13/2033 [id number] / / [id number] [employer] [place] 54mm 36mm Hip Neutral Liner Acetabular Altrx Sterile Latex Free [id number] - [id number] Implanted:Qty: 1 on 11/01/2023 by Ottoniel Ba MD at [facility] Right: Hip [employer] [id number] 09/12/2028 [id number] / / [id number] [employer] [place] 6.5mm 25mm Acetabular Cancellous Screw Bone Sterile 1217-25-500 - [id number] Implanted:Qty: 1 on 11/01/2023 by Ottoniel Ba MD at [facility] Right: Hip [employer] [id number] 07/13/2033 1217-25-500 / / [id number] [employer] Act[place] 99mm Collar Hip 2 01/26 High Offset Taper Stem Femoral [id number] - [id number] Implanted:Qty: 1 on 11/01/2023 by Ottoniel Ba MD at [facility] Right: Hip [employer] [id number] 03/15/2032 [id number] / / [id number] Insurance [employer] [facility] IDPA [employer] [place] Advance Directives For more information, please contact: [phone] * Full Code (Latest Code Status on File) Date Activated Date Inactivated Comments 11/01/2023 10:36 AM 11/01/2023 7:05 PM * Full Code Date Activated Date Inactivated Comments 07/06/2022 12:22 PM 07/06/2022 7:53 PM Care Teams Vegetable Buncher Relationship Specialty Start Date End Date Jordan Mann MD PCP - General Internal Medicine 10/23/21 Ottoniel Ba MD [address] [place] [address] Surgeon Orthopedic Surgery 07/06/22
--- OUTSIDE RECORDS SUMMARY | 2024-06-27 18:25 | XMS_ITS | Clinical Summary ---
Author Organization [facility] Address [address] [place] [address] Care Team Providers Care Mail Carrier Technician Name Role Phone Jordan Mann MD Primary Care Provider [phone] Camilo Pichardo MD Unavailable [phone] Bernadine Irby MD Unavailable Ottoniel Ba MD Unavailable [phone] Allergies Active Allergy Reactions Criticality Noted Date Comments Morphine Hives,Rash Low 11/18/2019 Medications sertraline (ZOLOFT) 50 MG tablet Take 1.5 tablets (75 mg total) by mouth daily. 07/21/2021 Active methIMAzole (TAPAZOLE) 5 MG tablet Take 3 tablets (15 mg total) by mouth daily. 08/01/2023 Active meloxicam (MOBIC) 15 MG tablet Take 1 tablet (15 mg total) by mouth daily. Active aspirin EC (ECOTRIN) 81 MG tablet Take 1 tablet (81 mg total) by mouth daily. Active ferrous sulfate, 65 mg elemental, 325 (65 FE) MG tablet Take 1 tablet (325 mg total) by mouth daily. 11/01/2023 Active ondansetron (ZOFRAN) 8 MG tablet Take 1 tablet (8 mg total) by mouth. 11/01/2023 Active oxyCODONE-aceta minophen (PERCOCET) 5-325 MG tablet Take 1 tablet by mouth every 4 (four) hours as needed. 11/03/2023 Active Senna (SENOKOT) 8.6 MG tablet Take 1 tablet (8.6 mg total) by mouth daily. Active Active Problems Problem Noted Date Diagnosed Date Pre-eclampsia, severe, condition ([facility]) 07/03/2021 ([facility]) 06/29/2021 Abnormal EKG 03/16/2021 Chest pain 03/16/2021 hypertension ([facility]) 11/18/2019 Advanced maternal age in multigravida ([facility]) 11/11/2019 Class 1 obesity due to exces s calories without serious comorbidity with body mass index (BMI) of 31.0 to 31.9 in adult 11/12/2018 Thyroid nodule 11/12/2018 Encounters Date Type Department Care Team Description 06/10/2024 Telephone [facility] [address] [place] [address] Bernadine Irby MD Error 06/10/2024 Orders Only [facility] [address] [place] [address] Bernadine Irby MD 05/30/2024 1:45 PM CDT Office Visit [facility] [address] [address] Bernadine Irby MD Heart Problem 05/30/2024 Scan [facility] [address] [place] [address] Scanned, Doc Pccl 05/29/2024 Telephone [facility] [address] [place] [address] Bernadine Irby MD Appointment Reminder 05/29/2024 Travel 05/27/2024 Orders Only [facility] [address] [place] [address] Bernadine Irby MD 04/10/2024 Telephone [facility] [address] [address] Bernadine Irby MD Appointment Reminder 04/01/2024 Telephone [facility] [address] [place] [address] Bernadine Irby MD Prior Authorization from Last 3 Months Immunizations Immunization Administration Dates Next Due Fluzone 6 Months+ Quad (0.5 mL Prefilled Syringe ) 11/13/2019 Family History Medical History Relation Comments Cancer Maternal Grandfather Diabetes Maternal Grandfather Cancer Maternal Grandmother Diabetes Maternal Grandmother Relation Status Comments Maternal Grandfather Maternal Grandmother Social History Tobacco Use Types Packs/Day Years Used Date Smoking Tobacco: Former Cigarettes Q uit: 11/10/2016 Smokeless Tobacco: Never Tobacco Cessation:Counseling Given: Not Answered Alcohol Use Standard Drinks/Week Comments Yes 0 (1 standard drink = 0.6 oz pur e alcohol) 1-2/month Humiliation, Afraid, Rape, and Kick questionnair e Answer Date Recorded Within the last year, have y ou been afraid of your partner or ex-partner? Patient declined 07/03/2021 Within the last year, have y ou been humiliated or emotionally abused in other ways by your partner or ex-partner? Patient declined 07/03/2021 Within the last year, have y ou been kicked, hit, slapped, or otherwise physically hurt by your partner or ex-partner? Patient declined 07/03/2021 Within the last year, have y ou been raped or forced to have any kind of sexual activity by your partner or ex-partner? Patient declined 07/03/2021 Social Connection and Isolation Panel [NHANES] A nswer Date Recorded In a typical week, how many times do you talk on the phone with family, friends, or neighbors? Patient declined 07/03/2021 How often do you get togethe r with friends or relatives? Patient declined 07/03/2021 How often do you attend jehovah's witness or judaism serv ices? Patient declined 07/03/2021 Do you belong to any clubs o r organizations such as jehovah's witness groups, unions, fraternal or athletic groups, or school groups? Patient declined 07/03/2021 How often do you attend meet ings of the clubs or organizations you belong to? Patient declined 07/03/2021 Are you , , di vorced, , never , or living with a partner? Patient declined 07/03/2021 AUDIT-C Answer Date Recorded Q1: How often do you have a drink containing alc ohol? Patient declined 07/03/2021 Q2: How many drinks containi ng alcohol do you have on a typical day when you are drinking? Patient declined 07/03/2021 Q3: How often do you have si x or more drinks on one occasion? Patient declined 07/03/2021 Overall Financial Resource Strain (CARDIA) Answe r Date Recorded How hard is it for you to pa y for the very basics like food, housing, medical care, and heating? Patient declined 07/03/2021 [facility] - Occupational Stress Questionnaire Answer Date Recorded Do you feel stress - tense, restless, nervous, or anxious, or unable to sleep at night because your mind is troubled all the time - these days? Patient declined 07/03/2021 Exercise Vital Sign Answer Date Recorde d On average, how many days pe r week do you engage in moderate to strenuous exercise (like a brisk walk)? Patient declined On average, how many minutes do you engage in exercise at this level? Patient declined 07/03/2021 Hunger Vital Sign Answer Date Recorded Within the past 12 months, y ou worried that your food would run out before you got the money to buy more. Patient declined Within the past 12 months, t he food you bought just didn't last and you didn't have money to get more. Patient declined PRAPARE - Transportation Answer Date Re corded In the past 12 months, has l ack of transportation kept you from medical appointments or from getting medications? Patient declined 07/03/2021 In the past 12 months, has l ack of transportation kept you from meetings, work, or from getting things needed for daily living? Patient declined 07/03/2021 Housing Stability Vital Sign Answer Dann e Recorded In the last 12 months, was t here a time when you were not able to pay the mortgage or rent on time? Patient refused 07/04/19 22 In the last 12 months, how many places have you lived? 1 07/03/2021 In the last 12 months, was t here a time when you did not have a steady place to sleep or slept in a group home (including now)? Patient refused 07/03/2021 Depression Answer Date Recor ded Last EPDS Total Score 6 07/02/2021 Last EPDS Self Harm Result Unrecognized value Comments No Sex and Gender Information Value Date Recorded Sex Assigned at Female 11/12/2019 12:41 PM CDT Legal Sex Female 4:57 PM CDT Gender Identity Female 11/12/2019 12:41 PM CDT Sexual Orientation Not on file Last Filed Vital Signs Vital Sign Reading Time Taken Comments Blood Pressure 105/68 11/09/2023 3:13 PM CDT Pulse 72 11/09/2023 3:13 PM CDT Temperature 36.3 C (97.4 F) 09/15/2023 5:53 PM CDT Respiratory Rate 16 11/09/2023 3:13 PM CDT Oxygen Saturation 99% 11/09/2023 3:13 PM CDT Inhaled Oxygen Concentration - - Weight 105.2 kg (232 lb) 11/09/2023 3:13 PM CDT Height 175.3 cm (5' 9 ) 11/09/2023 3:13 PM CDT Body Mass Index 34.26 11/09/2023 3:13 PM CDT Plan of Treatment Upcoming Encounters Date Type Department Care Team (Late st Contact Info) Description 06/05/2025 11:45 AM CDT Office Visit [facility] [address] Bernadine Irby MD [address] [place] [id number] Health Maintenance Due Date Last Done Comments ASCVD LDL 1980 Annual Physical 05/29/1983 Pneumococcal Vaccine: Pediatrics (0 to 5 Years) and At-Risk Patients (6 to 49 Years) (1 of 2 - PCV) 05/29/1999 Cervical Cancer Screening Pa p with HPV Testing (Age 30 to 64) Every 5 Years 2010 Hepatitis B Vaccines (3 of 3 - 19+ 3-dose series) 12/22/2018 07/18/2018, 06/21/2018 Mammogram Screening 2020 Cervical Cancer Screening Pa p Smear (Age 30 to 64) Every 3 Years 07/15/2022 07/16/2019 Cervical Cancer Screening wi th HPV 07/15/2022 COVID-19 Vaccine ( - 2023-2 5 season) 2023 DTaP, Tdap and Td Vaccines ( 4 - Td or Tdap) 04/22/2031 04/21/2021, 09/13/2019, 06/11/2018 Hepatitis C Completed 01/04/2021, 05/08/2019 HPV Vaccines Aged Out No longer eligi ble based on patient's age to complete this topic Meningococcal B Vaccine Aged Out No l onger eligible based on patient's age to complete this topic Meningococcal Vaccine Aged Out No zaida dallas eligible based on patient's age to complete this topic RSV Immunizations Under 20 Months Aged Out No longer eligible b ased on patient's age to complete this topic Procedures Procedure Name Priority Date/Time Associated Diagnosis Comments ELECTROCARDIOGRAM, TRACING Routine 05/30/2024 Other forms of angina pectoris HEPATITIS C ANTIBODY Routine 01/04/2021 10:30 AM HYPERBARIC TECHNOLOGIST Encounter for supervision of normal , unspecified, unspecified trimester ([facility]) CYTOPATH CERV/VAG THIN LAYER Routine 07/16/2019 7:27 AM CDT from Last 3 Months or Most Recently Relevant to Health Maintenance Results * NOT [facility] - ELECTROCARDIOGRAM, TRACING (05/30/2024) Bernadine Irby MD PROCEDURES-UNRESULTED Final Resu lt * HEPATITIS C ANTIBODY (01/04/2021 10:30 AM HYPERBARIC TECHNOLOGIST) HEPATITIS C AB NON-REACTI VE NON-REACT ALEXI 01/04/2021 7:06 PM HYPERBARIC TECHNOLOGIST [facility] Comment: ANTIBODIES TO HCV NOT DETECTED. DOES NOT EXCLUDE THE POSSIBILITY OF EXPOSURE TO HCV. 01/04/2021 10:3 0 AM HYPERBARIC TECHNOLOGIST Shira Breen APRN LABORATORY Final Resu lt [facility] [address] [place] [address], [id number] * Cytopath Cerv/Vag Thin Layer (07/16/2019 7:27 AM CDT) THIN PREP PAP [address] [address] Department of Pathology Pathology Report CERVICAL/VAGINAL PAP SMEAR REPORT Name: DANETTE NICHOLS Age: 4 1980 (Age: 39) Location: [facility] Sex: F Collected Date: 07/16/2019 Hospital #: [id number] Date Received: 07/18/2019 Date Reported: 07/23/2019 Provider: ZARA PICHARDO MD INTERPRETATION CERVICAL/ENDOCERVICA L: SATISFACTORY FOR EVALUATION. ENDOCERVICAL/TRANSFO RMATION ZONE COMPONENT PRESENT. NEGATIVE FOR INTRAEPITHELIAL LESION OR MALIGNANCY. NEGATIVE FOR HIGH RISK HPV. The FDA approved Aptima HPV assay is an in vitro nucleic acid amplification test for the qualitative detection of E6/E7 viral messenger RNA (mRNA) from 14 high-risk types of human papillomavirus (HPV) in cervical specimens. The high-risk HPV types detected by the assay include: 16,18,31,33,35,39,45 ,51,52,56,58,59,66, and 68. Electronically Signed Out By GABY Reyes (ASCP) CLINICAL HISTORY Z12.4 PAP HISTORY-UNKNOWN COPY CHASER SURGICAL HISTORY-NEG ThinPrep Pap Test with screening HR HPV testing requested, with reflex HPV 16/18 genotyping on negative cytology, positive HR HPV Date of Last Menstrual Period: UNKNOWN Menstrual Status: SPECIMEN SUBMITTED CERVICAL/ENDOCERVICA L Specimen Received:1 Thin Prep Vial, Image Assisted Pap (SMD) Please note: The Pap smear is not a diagnostic test. It is a screening test. Negative results on combined screening (Pap test and HPV-DNA) have a high negative predictive value (99.1-100 percent) for cervical cancer. The pap test is not effective in detecting cervical adenocarcinoma. [facility] 07/16/2019 7:27 AM CDT 07/18/2019 7:27 AM CDT Comment:CERVICAL/ENDOCERVICA L us Zara Morrow MD PATHOLOGY/CYTOLOGY OR DERABLES Final Result [facility] [address] [place] [address], from Last 3 Months or Most Recently Relevant to Health Maintenance Insurance [employer] Advance Directives * Full Code (Latest Code Status on File) Date Activated Date Inactivated Comments 07/03/2021 6:53 PM 07/05/2021 12:50 PM * Full Code Date Activated Date Inactivated Comments 06/29/2021 9:18 PM 07/02/2021 4:36 PM * Full Code Date Activated Date Inactivated Comments 11/18/2019 4:44 PM 11/20/2019 5:46 PM * Full Code Date Activated Date Inactivated Comments 11/11/2019 8:32 PM 11/14/2019 2:12 PM Care Teams Mail Carrier Technician Relationship Specialty Start Date End Date Jordan Mann MD [address] [place] [address] PCP - General INTERNAL MEDICINE 11/11/19 Camilo Pcihardo MD [address] [place] [phone] Consulting Physician OBGYN 03/11/21 Bernadine Irby MD [address] [place] [address] Consulting Physician CARDIOVASCULAR DISEASE 03/11/21 Ottoniel Ba MD [address] [address] ORTHOPAEDIC SURGERY 07/01/22
--- OUTSIDE RECORDS SUMMARY | 2024-06-27 18:25 | XMS_ITS | Clinical Summary ---
Author Organization [facility] Address [address] [place] [address] Phone Care Team Providers Care Rn Behavioral Health Name Role Phone Jordan Mann MD Primary Care Provider [phone] Amita Armstrong MD Unavailable Allergies Active Allergy Reactions Criticality Noted Date Comments Morphine Hives 03/03/2017 Medications sertraline (ZOLOFT) 50 MG Tablet 2 Active ondansetron (ZOFRAN-ODT) 8 MG TABLET DISPERSIBLE Take 8 mg by mouth every 8 hours as needed. Active ferrous sulfate 325 (65 Fe) MG Tablet Take 325 mg by mouth daily. Active oxyCODONE-acetam inophen (PERCOCET) 5-325 MG Tablet Take 1 Tablet by mouth every 4 hours as needed. Active senna (SENOKOT) 8.6 MG Tablet Take 1 Tablet by mouth daily. Active Ascorbic Acid (VITAMIN C PO) Take by mouth. Active Pseudoephedrine- Acetaminophen (SM NON-ASPRIN SINUS PO) Take by mouth. Active meloxicam (MOBIC) 15 MG Tablet Take 15 mg by mouth daily. Active methIMAzole (TAPAZOLE) 5 MG Tablet Take 3 Tablets by mouth daily. 270 Tablet 5 Active methIMAzole (TAPAZOLE) 5 MG Tablet Take 3 Tablets by mouth daily. 270 Tablet 4 06/14/19 25 Discontinu ed(Reorder ) Active Problems Problem Noted Date Diagnosed Date Thyroid nodule 11/12/2018 Class 1 obesity due to exces s calories without serious comorbidity with body mass index (BMI) of 31.0 to 31.9 in adult 11/12/2018 Encounters Date Type Department Care Team Description 06/13/2024 MyChart RX Renewal [facility] [place] [address] [place] [address] Amita Armstrong MD Medication Renewal Reviewed from Last 3 Months Immunizations Immunization Administration Dates Next Due Hepatitis B Vaccine 07/18/2018,06/21/2018 Influenza Vaccine, Quadrivalent, PF 11/13/2019 TDAP Vaccine 04/21/2021,09/13/2019,06/11/2018 Family History Medical History Relation Name Comments No Known Problems Father Cancer Maternal Grandfather Diabetes Maternal Grandmother No Known Problems Mother No Known Problems Sister Relation Name Status Comments Father Maternal Grandfather Maternal Grandmother Mother Alive Sister Alive Social History Tobacco Use Types Packs/Day Years Used Date Smoking Tobacco: Former Cigarettes Q uit: 10/12/2017 Smokeless Tobacco: Never Tobacco Cessation:Counseling Given: Not Answered Alcohol Use Standard Drinks/Week Comments Not Currently 0 (1 standard drink = 0.6 oz pur e alcohol) Socially Sexually Active Control Partners Comments Yes Male Comments No Sex and Gender Information Value Date Recorded Sex Assigned at Not on file Legal Sex Female 2:15 PM CDT Gender Identity Not on file Sexual Orientation Not on file Last Filed Vital Signs Vital Sign Reading Time Taken Comments Blood Pressure 130/82 11/06/2023 8:09 AM CDT Pulse 86 11/06/2023 8:09 AM CDT Temperature 36.4 C (97.5 F) 11/06/2023 8:09 AM CDT Respiratory Rate 18 11/06/2023 8:09 AM CDT Oxygen Saturation 100% 11/06/2023 8:09 AM CDT Inhaled Oxygen Concentration - - Weight 107 kg (236 lb) 11/06/2023 8:09 AM CDT Height 175.3 cm (5' 9 ) 03/02/2023 10:10 AM HEALTH SAFETY ENGINEER Body Mass Index 34.85 03/02/2023 10:10 AM HEALTH SAFETY ENGINEER Plan of Treatment Upcoming Encounters Date Type Department Care Team (Late st Contact Info) Description 07/11/2024 9:15 AM CDT Office Visit [facility] [place] [address] [place] [address] Amita Armstrong MD [address] [address] Health Maintenance Due Date Last Done Comments Mammogram 1980 HPV/Cotest 2010 Hepatitis B Immunization (3 of 3 - 19+ 3-dose series) 12/22/2018 07/18/2018, 06/21/2018 Discussion re Starting/Frequency of Mammograms 2020 Cervical Cancer Screening (CCS) 07/15/2022 Pap Smear 07/15/2022 07/16/2019 SARS-COV-2 Immunization ( season) 2023 Influenza Immunization (Seas on Ended) 2024 11/13/2019 Td Immunization Every 10 Yea rs (Adults With 1 Tdap) 04/22/2031 04/21/2021, 09/13/2019, 06/11/2018 Respiratory Syncytial Virus (RSV) Immunization (Adult) (1 - 1-dose 75+ series) 05/29/2055 Hepatitis C Virus (HCV) Screening Completed 01/04/2021 DTaP/Tdap/Td Immunization Discontinued 2021, 09/13/2019, 06/11/2018 Human Papillomavirus (HPV) Immunization Aged Out No longer eligible based on patient's age to complete this topic Meningococcal Immunization (ACWY) Aged Out No longer eligible based on patient's age to complete this topic Pneumococcal Immunization Combined Aged Out No longer eligible based on patient's age to complete this topic Rotavirus Immunization Aged Out No lo nger eligible based on patient's age to complete this topic Insurance MEDICAID AETNA [facility] Care Teams Rn Behavioral Health Relationship Specialty Start Date End Date Jordan Mann MD [address], [place] [id number] PCP - General Internal Medicine 09/12/18 Amita Armstrong MD [address] [phone] Consulting Physician Endocrinology 12/07/21
--- OUTSIDE RECORDS SUMMARY | 2024-06-27 18:25 | XMS_ITS | Encounter Summary ---
Author Organization [facility] Healthcare Address [address] [place] [address] Care Team Providers Care Margin Trimmer Name Role Phone Jordan Mann MD Primary Care Provider [phone] Ottoniel Ba MD Unavailable [phone] Reason for Visit * Reason Onset Date Comments Appointment Reminder Call 03/31/2022 Confir med Encounter Details Date Type Department Care Team (Late st Contact Info) Description 03/31/2022 Telephone [facility] [address] [place] [address] Yodit Patel RT Appointment Reminder Call (Confirmed ) Social History Tobacco Use Types Packs/Day Years Used Date Smoking Tobacco: Former Cigarettes Q uit: 09/13/2016 Smokeless Tobacco: Never Alcohol Use Standard Drinks/Week Comments Yes 0 (1 standard drink = 0.6 oz pur e alcohol) Comments Unknown Sex and Gender Information Value Date Recorded Sex Assigned at Not on file Legal Sex Female 3:18 PM DISTRICT OPERATIONS MANAGER Gender Identity Female 04/19/2023 11:37 AM DISTRICT OPERATIONS MANAGER Sexual Orientation Straight 04/19/2023 11 :37 AM DISTRICT OPERATIONS MANAGER documented as of this encounter Plan of Treatment Not on file documented as of this encounter Visit Diagnoses Not on filedocumented in this encounter Care Teams Margin Trimmer Relationship Specialty Start Date End Date Jordan Mann MD PCP - General Internal Medicine 10/23/21 Ottoniel Ba MD [address] [place] [address] [address] [place] [address] Surgeon Orthopedic Surgery 07/06/22 documented as of this encounter
[2024-06-27 18:26] VITALS: BP 129/99; PULSE 103; RESP 16; TEMP 37.2; O2SAT 99
[2024-06-27 19:10] VITALS: BP 157/98
[2024-06-27] MEDS: predniSONE 20 MG TABLET PO (19:40)
[2024-06-27] MEDS: cefTRIAXone 1 GM, LIDOCAINE 1% LOCAL INJ 2.1 ML IM (19:40)
[2024-06-27] MEDS: TETANUS,DIPHTHERIA,AC PERTUSSIS ADULT 0.5 ML (ADACEL) IM (19:41)
--- OUTSIDE RECORDS SUMMARY | 2024-06-27 19:56 | XMS_ITS | Referral Summary ---
Author Organization [facility] Address [address] [place] [address] Care Team Providers Care Stone Processing Machine Operator Name Role Phone Jordan Mann MD Primary Care Provider [phone] Ottoniel Ba MD Unavailable [phone] Allergies Active Allergy Reactions Criticality Noted Date [...] 03/03/2017 Assessment & Plan (04/04/2017 9:22 AM VOLCANOLOGIST): Differential diagnosis would include benign nodule (macrofollicular or adenomatoid/hyperplastic nodules, colloid adenomas, nodular goiter, and Richelle's thyroiditis) vs thyroid carcinoma ( follicular , papillary ) FNA indicated and performed If benign, will follow up with serial ultrasound Otherwise, patient to follow up with Dr Martinez to consider surgery . Assessment & Plan (03/03/2017 12:22 PM VOLCANOLOGIST): Patient is noted to have a dominant [...] on file Legal Sex Female 3:18 PM VOLCANOLOGIST Gender Identity Female 04/19/2023 11:37 AM VOLCANOLOGIST Sexual Orientation Straight 04/19/2023 11 :37 AM VOLCANOLOGIST Last Filed Vital Signs Vital Sign Reading Time Taken Comments Blood Pressure 122/79 01/23/2024 11:35 AM VOLCANOLOGIST Pulse 80 01/23/2024 11:35 AM VOLCANOLOGIST Temperature 36.4 C (97.6 F) 01/17/2024 3:00 PM VOLCANOLOGIST Respiratory Rate 18 01/17/2024 3:00 PM VOLCANOLOGIST Oxygen Saturation 99% 01/17/2024 3:00 PM VOLCANOLOGIST Inhaled Oxygen Concentration - - Weight 105.7 kg (233 lb) 01/23/2024 11:35 AM VOLCANOLOGIST Height 175.3 cm (5' 9 ) 01/23/2024 11:35 AM VOLCANOLOGIST Body Mass Index 34.41 01/23/2024 11:35 AM VOLCANOLOGIST Plan of Treatment Not on file Medical Devices Implanted Type Area Cabin Cleaner Device Identifier Shelf Expiration Date Model / Serial / Lot [employer] [place] 56mm Sector Hip Shell Acetabular Gription Sterile Latex Free [id number] - [id number] Implanted:Qty: 1 on 07/06/2022 by Ottoniel Ba MD at [facility] Left: Hip [employer] 05/13/2032 [id number] / / [id number] [employer] [place] 56mm 36mm Hip Neutral Liner Acetabular Altrx Sterile Latex Free [id number] - [id number] Implanted:Qty: 1 on 07/06/2022 by Ottoniel Ba MD at [facility] Left: Hip [employer] 04/13/2027 [id number] / / [id number] [employer] [place] 6.5mm 25mm Acetabular Cancellous Screw Bone Sterile 1217-25-500 - [id number] Implanted:Qty: 1 on 07/06/2022 by Ottoniel Ba MD at [facility] Left: Hip [employer] 01/13/2032 1217-25-500 / / [id number] [employer] Actis 99mm Collar Hip 2 01/26 High Offset Taper Stem Femoral [id number] - [id number] Implanted:Qty: 1 on 07/06/2022 by Ottoniel Ba MD at [facility] Left: Hip [employer] 02/13/2032 [id number] / / [id number] [employer] Articul/Grant 36mm Cementless Hip +8.5mm 12/14 Taper Head Femoral Latex Free 1368-36330 - [id number] Implanted:Qty: 1 on 07/06/2022 by Ottoniel Ba MD at [facility] Left: Hip [employer] 05/14/2027 1365-36-330 / / [id number] [employer] Articul/Grant 36mm Cementless Hip +8.5mm 12/14 Taper Head Femoral Latex Free 1361-36330 - [id number] Implanted:Qty: 1 on 11/01/2023 by Ottoniel Ba MD at [facility] Right: Hip [employer] [id number] 08/12/2028 1364-36330 / / [id number] [employer] [place] 54mm Sector Hip Shell Acetabular Gription Sterile Latex Free [id number] - [id number] Implanted:Qty: 1 on 11/01/2023 by Ottoniel Ba MD at [facility] Right: Hip [employer] [id number] 07/13/2033 [id number] / / [id number] [employer] [place] 54mm 36mm Hip Neutral Liner Acetabular Altrx Sterile Latex Free [id number] - [id number] Implanted:Qty: 1 on 11/01/2023 by Ottoniel Ba MD at [facility] Right: Hip [employer] [id number] 09/12/2028 [id number] / / [id number] [employer] [place] 6.5mm 25mm Acetabular Cancellous Screw Bone Sterile 1217-25-500 - [id number] Implanted:Qty: 1 on 11/01/2023 by Ottoniel Ba MD at [facility] Right: Hip [employer] [id number] 07/13/2033 1217-25-500 / / [id number] [employer] Actis 99mm Collar Hip 2 01/26 High Offset Taper Stem Femoral [id number] - [id number] Implanted:Qty: 1 on 11/01/2023 by Ottoniel Ba MD at [facility] Right: Hip [employer] [id number] 03/15/2032 [id number] / / [id number] Insurance AET[place] A[place] Advance Directives For more information, please contact: [phone] * Full Code (Latest Code Status on File) Date Activated Date Inactivated Comments 11/01/2023 10:36 AM 11/01/2023 7:05 PM * Full Code Date Activated Date Inactivated Comments 07/06/2022 12:22 PM 07/06/2022 7:53 PM Care Teams Stone Processing Machine Operator Relationship Specialty Start Date End Date Jordan Mann MD PCP - General Internal Medicine 10/23/21 Ottoniel Ba MD [address] [place] [address] DR [address] [place] [address] Surgeon Orthopedic Surgery 07/06/22
--- OUTSIDE RECORDS SUMMARY | 2024-06-27 19:56 | XMS_ITS | Clinical Summary ---
Author Organization [facility] Address [address] [place] [address] Care Team Providers Care Plug Sorter Name Role Phone Jordan Mann MD Primary Care Provider [phone] Ottoniel Ba MD Unavailable [phone] Allergies Active Allergy Reactions Criticality Noted Date [...] 03/03/2017 Assessment & Plan (04/04/2017 9:22 AM HEALTH AND SAFETY DIRECTOR): Differential diagnosis would include benign nodule (macrofollicular or adenomatoid/hyperplastic nodules, colloid adenomas, nodular goiter, and Richelle's thyroiditis) vs thyroid carcinoma ( follicular , papillary ) FNA indicated and performed If benign, will follow up with serial ultrasound Otherwise, patient to follow up with Dr Martinez to consider surgery . Assessment & Plan (03/03/2017 12:22 PM HEALTH AND SAFETY DIRECTOR): Patient is noted to have a dominant [...] on file Legal Sex Female 3:18 PM HEALTH AND SAFETY DIRECTOR Gender Identity Female 04/19/2023 11:37 AM HEALTH AND SAFETY DIRECTOR Sexual Orientation Straight 04/19/2023 11 :37 AM HEALTH AND SAFETY DIRECTOR Obstetrics History Last Filed Vital Signs Vital Sign Reading Time Taken Comments Blood Pressure 122/79 01/23/2024 11:35 AM HEALTH AND SAFETY DIRECTOR Pulse 80 01/23/2024 11:35 AM HEALTH AND SAFETY DIRECTOR Temperature 36.4 C (97.6 F) 01/17/2024 3:00 PM HEALTH AND SAFETY DIRECTOR Respiratory Rate 18 01/17/2024 3:00 PM HEALTH AND SAFETY DIRECTOR Oxygen Saturation 99% 01/17/2024 3:00 PM HEALTH AND SAFETY DIRECTOR Inhaled Oxygen Concentration - - Weight 105.7 kg (233 lb) 01/23/2024 11:35 AM HEALTH AND SAFETY DIRECTOR Height 175.3 cm (5' 9 ) 01/23/2024 11:35 AM HEALTH AND SAFETY DIRECTOR Body Mass Index 34.41 01/23/2024 11:35 AM HEALTH AND SAFETY DIRECTOR Plan of Treatment Health Maintenance Due Date [...] this topic Medical Devices Implanted Type Area Special Education Administrator Device Identifier Shelf Expiration Date Model / Serial / Lot [employer] [place] 56mm Sector Hip Shell Acetabular Gription Sterile Latex Free [id number] - [id number] Implanted:Qty: 1 on 07/06/2022 by Ottoniel Ba MD at [facility] Left: Hip [employer] 05/13/2032 [id number] / / [id number] [employer] [place] 56mm 36mm Hip Neutral Liner Acetabular Altrx Sterile Latex Free [id number] - [id number] Implanted:Qty: 1 on 07/06/2022 by Ottoniel Ba MD at [facility] Left: Hip [employer] 04/13/2027 [id number] / / [id number] [employer] [place] 6.5mm 25mm Acetabular Cancellous Screw Bone Sterile 1217-25-500 - [id number] Implanted:Qty: 1 on 07/06/2022 by Ottoniel Ba MD at [facility] Left: Hip [employer] 01/13/2032 1217-25-500 / / [id number] [employer] Actis 99mm Collar Hip 2 01/26 High Offset Taper Stem Femoral [id number] - [id number] Implanted:Qty: 1 on 07/06/2022 by Ottoniel Ba MD at [facility] Left: Hip [employer] 02/13/2032 [id number] / / [id number] [employer] Articul/Grant 36mm Cementless Hip +8.5mm 12/14 Taper Head Femoral Latex Free 1365-36330 - [id number] Implanted:Qty: 1 on 07/06/2022 by Ottoniel Ba MD at [facility] Left: Hip [employer] 05/14/2027 1365-36-330 / / [id number] [employer] Articul/Grant 36mm Cementless Hip +8.5mm 12/14 Taper Head Femoral Latex Free 1365-36-330 - [id number] Implanted:Qty: 1 on 11/01/2023 by Ottoniel Ba MD at [facility] Right: Hip [employer] [id number] 08/12/2028 1365-36-330 / / [id number] [employer] [place] 54mm Sector Hip Shell Acetabular Gription Sterile Latex Free 879330554 - [id number] Implanted:Qty: 1 on 11/01/2023 by Ottoniel Ba MD at [facility] Right: Hip [employer] [id number] 07/13/2033 [id number] / / [id number] [employer] [place] 54mm 36mm Hip Neutral Liner Acetabular Altrx Sterile Latex Free [id number] - [id number] Implanted:Qty: 1 on 11/01/2023 by Ottoniel Ba MD at [facility] Right: Hip [employer] [id number] 09/12/2028 [id number] / / [id number] [employer] [place] 6.5mm 25mm Acetabular Cancellous Screw Bone Sterile 1217-25-500 - [id number] Implanted:Qty: 1 on 11/01/2023 by Ottoniel Ba MD at [facility] Right: Hip [employer] [id number] 07/13/2033 1217-25-500 / / [id number] [employer] Actis 99mm Collar Hip 2 01/26 High Offset Taper Stem Femoral [id number] - [id number] Implanted:Qty: 1 on 11/01/2023 by Ottoniel Ba MD at [facility] Right: Hip [employer] [id number] 03/15/2032 [id number] / / [id number] Insurance AETNA [facility] [place] AETNA [place] Advance Directives For more information, please contact: [phone] * Full Code (Latest Code Status on File) Date Activated Date Inactivated Comments 11/01/2023 10:36 AM 11/01/2023 7:05 PM * Full Code Date Activated Date Inactivated Comments 07/06/2022 12:22 PM 07/06/2022 7:53 PM Care Teams Plug Sorter Relationship Specialty Start Date End Date Jordan Mann MD PCP - General Internal Medicine 10/23/21 Ottoniel Ba MD [address] [facility] [address] [place] [address] Surgeon Orthopedic Surgery 07/06/22
--- OUTSIDE RECORDS SUMMARY | 2024-06-27 19:56 | XMS_ITS | Clinical Summary ---
Author Organization [facility] Address [address] [place] [address] Phone Care Team Providers Care Quality Compliance Manager Name Role Phone Jordan Mann MD Primary Care Provider [phone] Amita Armstrong MD Unavailable Allergies Active Allergy [...] Renewal [facility] [place] [address] [place] [address] Amita Armstrong MD Medication Renewal [...] cm (5' 9 ) 03/02/2023 10:10 AM REGIONAL MARKETING MANAGER Body Mass Index 34.85 03/02/2023 10:10 AM REGIONAL MARKETING MANAGER Plan of Treatment Upcoming Encounters Date Type Department Care Team (Late st Contact Info) Description 07/11/2024 9:15 AM CDT Office Visit [facility] [place] [address] [place] [address] Amita Armstrong MD [address] [address] Health Maintenance Due Date Last [...] to complete this topic Insurance MEDICAID AETNA [facility] Care Teams Quality Compliance Manager Relationship Specialty Start Date End Date Jordan Mann MD [address] [place], [place] [id number] PCP - General Internal Medicine 09/12/18 Amita Armstrong MD [address] [phone] Consulting Physician Endocrinology 12/07/21
--- OUTSIDE RECORDS SUMMARY | 2024-06-27 19:56 | XMS_ITS | Encounter Summary ---
Author Organization [facility] Healthcare Address [address] [place] [address] Care Team Providers Care Lead Machinist Name Role Phone Jordan Mann MD Primary Care Provider [phone] Ottoniel Ba MD Unavailable [phone] Reason for Visit * Reason Onset Date Comments Appointment Reminder Call 03/31/2022 Confir med Encounter Details Date Type Department Care Team (Late st Contact Info) Description 03/31/2022 Telephone [facility] [address] [place] [address] Yodit Patel RT Appointment Reminder Call (Confirmed ) Social History Tobacco Use Types Packs/Day Years Used Date Smoking Tobacco: Former Cigarettes Q uit: 09/13/2016 Smokeless Tobacco: Never Alcohol Use Standard Drinks/Week Comments Yes 0 (1 standard drink = 0.6 oz pur e alcohol) Comments Unknown Sex and Gender Information Value Date Recorded Sex Assigned at Not on file Legal Sex Female 3:18 PM DIRECTOR NEWS Gender Identity Female 04/19/2023 11:37 AM DIRECTOR NEWS Sexual Orientation Straight 04/19/2023 11 :37 AM DIRECTOR NEWS documented as of this encounter Plan of Treatment Not on file documented as of this encounter Visit Diagnoses Not on filedocumented in this encounter Care Teams Lead Machinist Relationship Specialty Start Date End Date Jordan Mann MD PCP - General Internal Medicine 10/23/21 Ottoniel Ba MD [address] [place] [address] [address] [place] [address] Surgeon Orthopedic Surgery 07/06/22 documented as of this encounter
--- OUTSIDE RECORDS SUMMARY | 2024-06-27 19:56 | XMS_ITS | Clinical Summary ---
Author Organization [facility] Address [address] [place] [address] Care Team Providers Care Extracorporeal Circulation Specialist Name Role Phone Jordan Mann MD Primary Care Provider [phone] Camilo Pichardo MD Unavailable [phone] Bernadine Irby MD Unavailable Ottoniel Ba MD Unavailable [phone] Allergies Active Allergy Reactions Criticality Noted [...] Noted Date Diagnosed Date Pre-eclampsia, severe, condition ([facility]) 07/03/2021 ([facility]) 06/29/2021 Abnormal EKG 03/16/2021 Chest pain 03/16/2021 hypertension ([facility]) 11/18/2019 Advanced maternal age in multigravida ([facility]) 11/11/2019 Class 1 obesity due to exces s calories without serious comorbidity with body mass index (BMI) of 31.0 to 31.9 in adult 11/12/2018 Thyroid nodule 11/12/2018 Encounters Date Type Department Care Team Description 06/10/2024 Telephone [facility] [address] [place] [address] Bernadine Irby MD Error 06/10/2024 Orders Only [facility] [address] [place] [address] Bernadine Irby MD 05/30/2024 1:45 PM CDT Office Visit [facility] [address] [address] Bernadine Irby MD Heart Problem 05/30/2024 Scan [facility] [address] [place] [address] Scanned, Doc Pccl 05/29/2024 Telephone [facility] [address] [place] [address] Bernadine Irby MD Appointment Reminder 05/29/2024 Travel 05/27/2024 Orders Only [facility] [address] [place] [address] Bernadine Irby MD 04/10/2024 Telephone [facility] [address] [address] Bernadine Irby MD Appointment Reminder 04/01/2024 Telephone [facility] [address] [place] [address] Bernadine Irby MD Prior Authorization from Last [...] declined 07/03/2021 How often do you attend caodaism or jew serv ices? Patient declined 07/03/2021 Do you belong to any clubs o r organizations such as caodaism groups, unions, fraternal or athletic groups, or [...] medical care, and heating? Patient declined 07/03/2021 [facility] - Occupational Stress Questionnaire Answer Date Recorded [...] place to sleep or slept in a residential (including now)? Patient refused 07/03/2021 Depression Answer [...] Description 06/05/2025 11:45 AM CDT Office Visit [facility] [address] Bernadine Irby MD [address] [place] [address] Health Maintenance Due Date Last Done Comments [...] HEPATITIS C ANTIBODY Routine 01/04/2021 10:30 AM ION EXCHANGE OPERATOR Encounter for supervision of normal , unspecified, unspecified trimester ([facility]) CYTOPATH CERV/VAG THIN LAYER Routine 07/16/2019 7:27 AM CDT from Last 3 Months or Most Recently Relevant to Health Maintenance Results * NOT [facility] - ELECTROCARDIOGRAM, TRACING (05/30/2024) Bernadine Irby MD PROCEDURES-UNRESULTED Final Resu lt * HEPATITIS C ANTIBODY (01/04/2021 10:30 AM ION EXCHANGE OPERATOR) HEPATITIS C AB NON-REACTI VE NON-REACT ALEXI 01/04/2021 7:06 PM ION EXCHANGE OPERATOR [facility] Comment: ANTIBODIES TO HCV NOT DETECTED. DOES NOT EXCLUDE THE POSSIBILITY OF EXPOSURE TO HCV. 01/04/2021 10:3 0 AM ION EXCHANGE OPERATOR Shira Breen APRN LABORATORY Final Resu lt [facility] [address] [place] [address], [id number] * Cytopath Cerv/Vag Thin Layer (07/16/2019 7:27 AM CDT) THIN PREP PAP [address] [address] Department of Pathology Pathology Report CERVICAL/VAGINAL PAP SMEAR REPORT Name: DANETTE NICHOLS Age: 4 1980 (Age: 39) Location: [facility] Sex: F Collected Date: 07/16/2019 Hospital #: [id number] Date Received: 07/18/2019 Date Reported: 07/23/2019 Provider: [...] Reyes (ASCP) CLINICAL HISTORY Z12.4 PAP HISTORY-UNKNOWN [employer] SURGICAL HISTORY-NEG ThinPrep Pap Test with screening [...] is not effective in detecting cervical adenocarcinoma. [facility] 07/16/2019 7:27 AM CDT 07/18/2019 7:27 AM CDT Comment:CERVICAL/ENDOCERVICA L us Zara Morrow MD PATHOLOGY/CYTOLOGY OR DERABLES Final Result [facility] [address] [place] [address], from Last 3 Months or Most Recently [...] 8:32 PM 11/14/2019 2:12 PM Care Teams Extracorporeal Circulation Specialist Relationship Specialty Start Date End Date Jordan Mann MD [address] [place] [address] PCP - General INTERNAL MEDICINE 11/11/19 Camilo Pichardo MD [address] [place] [address] Consulting Physician OBGYN 03/11/21 Bernadine Irby MD [address] [place] [address] Consulting Physician CARDIOVASCULAR DISEASE 03/11/21 Ottoniel aB MD [address] [address] ORTHOPAEDIC SURGERY 07/01/22
--- OUTSIDE RECORDS SUMMARY | 2024-06-27 19:56 | XMS_ITS | Encounter Summary ---
Author Organization [facility] Address [address] [place] [address] Phone Care Team Providers Care Strategic Sourcing Specialist Name Role Phone Jordan Mann MD Primary Care Provider [phone] Jordan Mann MD Primary Care Provider [phone] Ottoniel Ba MD Unavailable [phone] Encounter Details Date Type Department Care Team (Late st Contact Info) Description 04/04/2017 Orders Only [facility] ProviderJoe MD [address] [place] [address] Social History Tobacco Use Types Packs/Day Years Used Date Smoking Tobacco: Former Cigarettes Q uit: 09/13/2016 Smokeless Tobacco: Never Alcohol Use Standard Drinks/Week Comments Yes 0 (1 standard drink = 0.6 oz pur e alcohol) Comments Unknown Sex and Gender Information Value Date Recorded Sex Assigned at Not on file Legal Sex Female 3:18 PM LIGHT ARMORED VEHICLE OFFICER Gender Identity Female 04/19/2023 11:37 AM LIGHT ARMORED VEHICLE OFFICER Sexual Orientation Straight 04/19/2023 11 :37 AM LIGHT ARMORED VEHICLE OFFICER documented as of this encounter Plan of Treatment Not on file documented as of this encounter Procedures Procedure Name Priority Date/Time Associated Diagnosis Comments CYTOLOGY 04/04/2017 12:00 AM LIGHT ARMORED VEHICLE OFFICER documented in this encounter Results * CYTOLOGY (04/04/2017 12:00 AM LIGHT ARMORED VEHICLE OFFICER) Narrative 04/04/2017 12:00 AM LIGHT ARMORED VEHICLE OFFICER Ordered by an unspecified provider. us Historical Provider LAB CYTOLOGY ORDERABLES F inal Result documented in this encounter Visit Diagnoses Not on filedocumented in this encounter Care Teams Strategic Sourcing Specialist Relationship Specialty Start Date End Date Jordan Mann MD PCP - General Internal Medicine 02/01/17 10/22/21 Jordan Mann MD PCP - General Internal Medicine 10/23/21 Ottoniel Ba MD [address] [place] [address] [place] [address] Surgeon Orthopedic Surgery 07/06/22 documented as of this encounter
--- NOTE | 2024-06-27 20:01 | ED_ITS ---
HPI - Skin/Abscess/Foreign Bdy General Chief complaint: Skin/Abscess/Foreign Body Stated complaint: right hand swelling Time Seen by Provider: 06/27/24 19:19 Source: patient Mode of arrival: ambulatory Limitations: no limitations History of Present Illness HPI narrative: This is a 44-year-old female with no significant past medical history was outdoors mowing her lawn and had an insect bite to her right hand causing warmth tenderness and swelling has a breast radial pulse on the right no numbness or tingling has taken Benadryl [id number]. There is no fever or chills no chest pain no shortness of breath. complaint: insect bite/sting Onset (ago): day(s) Tetanus up to date: no Location: R hand Severity: moderate Related Data Allergies Allergy/AdvReac Type Severity Reaction Status Date / Time morphine Allergy Severe Hives Verified 06/27/24 19:34 Review of Systems Review of Systems: All systems reviewed & are unremarkable except as noted in HPI and below PMFSH Past Medical History Medical History Patient denies medical problems Exam Const: General: healthy appearing and no acute distress Nutritional Appearance: well nourished Orientation/consciousness: patient oriented x3 Limitations: no limitations Eyes: Conjunctivae: conjunctivae normal Pupils: Equal, round and reactive pupils present EOM: EOMs intact bilaterally Chest: Chest palpation & inspection: normal inspection of the chest Resp: Effort & Inspection: normal respiratory effort Auscultation: clear to auscultation bilaterally Cardio: Rate: regular rate Rhythm: regular rhythm GI: Auscultation: normal bowel sounds : General: Yes bladder normal to palpation Skin: Other: red warm tender and swollen right hand with 2 distinct punctate lesions from insect bite. Neuro: General: patient oriented x3, moves all extremities and no meningeal signs Extrem: General: edema Course Course Emergency Course: Patient received steroid an IM injection of ceftriaxone for cellulitis. Vital Signs Vital signs: Vital Signs Temperature 37.2 C 06/27/24 18:26 Pulse Rate 103 H 06/27/24 18:26 Respiratory Rate 16 06/27/24 18:26 Blood Pressure 129/99 H 06/27/24 18:26 Pulse Oximetry 99 06/27/24 18:26 Oxygen Delivery Room Air 06/27/24 18:26 Temperature 37.2 C 06/27/24 18:26 Pulse Rate 103 H 06/27/24 18:26 Respiratory Rate 16 06/27/24 18:26 Blood Pressure 157/98 H 06/27/24 19:10 Pulse Oximetry 99 06/27/24 18:26 Oxygen Delivery Room Air 06/27/24 18:26 Critical Care Time Critical Care Time Critical Care Time: No Discharge Plan Discharge Clinical Impression: Cellulitis, Insect bite Patient Disposition: Home Condition: Stable Instructions: Antibiotic Form, Cellulitis (ED), Insect Bite or Sting (ED) Additional Instructions: advised patient to take medication as prescribed and follow with primary within 1 week if symptoms persist or worsen. Patient Language: South Korean Prescriptions: New amoxicillin-pot clavulanate [Augmentin] 500-125 mg tablet 1 tablet PO TID Qty: 30 0RF prednisone 20 mg tablet 20 mg PO DAILY 5 Days Qty: 5 0RF Follow-up/Referrals: Jordan Mann MD [Primary Care Provider] - Time of Disposition: 20:05
[2024-06-27 20:18] VITALS: BP 148/89; PULSE 98; RESP 20; O2SAT 100
== END 2024-06-27 20:18 | disposition home or self-care (01) ==
PROVIDERS: Emergency Provider Emergency Medicine; PCP Internal Medicine
DX: S60.561A Insect bite (nonvenomous) of right hand, initial encounter (principal); L03.113 Cellulitis of right upper limb; Z23 Encounter for immunization; W57.XXXA Bitten or stung by nonvenomous insect and other nonvenomous arthropods, initial encounter
CPT/HCPCS: 90471; 90715; 96372; 99283; J0696; J2003; J7512

== ENCOUNTER 2024-07-16 21:43 | Emergency (ER) | payer OTHER, SELFPAY ==
--- OUTSIDE RECORDS SUMMARY | 2024-07-16 21:45 | XMS_ITS | Referral Summary ---
Author Organization [facility] Address [address] [place] [address] Care Team Providers Care Liquid Loader Name Role Phone Jordan Mann MD Primary Care Provider [phone] Ottoniel Ba MD Unavailable [phone] Allergies Active Allergy Reactions Criticality Noted Date [...] 03/03/2017 Assessment & Plan (04/04/2017 9:22 AM GAS SHOVEL OPERATOR): Differential diagnosis would include benign nodule (macrofollicular or adenomatoid/hyperplastic nodules, colloid adenomas, nodular goiter, and Richelle's thyroiditis) vs thyroid carcinoma ( follicular , papillary ) FNA indicated and performed If benign, will follow up with serial ultrasound Otherwise, patient to follow up with Dr Martinez to consider surgery . Assessment & Plan (03/03/2017 12:22 PM GAS SHOVEL OPERATOR): Patient is noted to have a dominant [...] on file Legal Sex Female 3:18 PM GAS SHOVEL OPERATOR Gender Identity Female 04/19/2023 11:37 AM GAS SHOVEL OPERATOR Sexual Orientation Straight 04/19/2023 11 :37 AM GAS SHOVEL OPERATOR Last Filed Vital Signs Vital Sign Reading Time Taken Comments Blood Pressure 122/79 01/23/2024 11:35 AM GAS SHOVEL OPERATOR Pulse 80 01/23/2024 11:35 AM GAS SHOVEL OPERATOR Temperature 36.4 C (97.6 F) 01/17/2024 3:00 PM GAS SHOVEL OPERATOR Respiratory Rate 18 01/17/2024 3:00 PM GAS SHOVEL OPERATOR Oxygen Saturation 99% 01/17/2024 3:00 PM GAS SHOVEL OPERATOR Inhaled Oxygen Concentration - - Weight 105.7 kg (233 lb) 01/23/2024 11:35 AM GAS SHOVEL OPERATOR Height 175.3 cm (5' 9) 01/23/2024 11:35 AM GAS SHOVEL OPERATOR Body Mass Index 34.41 01/23/2024 11:35 AM GAS SHOVEL OPERATOR Plan of Treatment Not on file Medical Devices Implanted Type Area Colliery Clerk Device Identifier Shelf Expiration Date Model / Serial / Lot [employer] [place] 56mm Sector Hip Shell Acetabular Gription Sterile Latex Free [id number] - [id number] Implanted:Qty: 1 on 07/06/2022 by Ottoniel Ba MD at [facility] Left: Hip [employer] 05/13/2032 [id number] / / [id number] [employer] [place] 56mm 36mm Hip Neutral Liner Acetabular Altrx Sterile Latex Free [id number] - [id number] Implanted:Qty: 1 on 07/06/2022 by Ottoniel Ba MD at [facility] Left: Hip [employer] 04/13/2027 [id number] / / [id number] [employer] [place] 6.5mm 25mm Acetabular Cancellous Screw Bone Sterile 1217-25-500 - [id number] Implanted:Qty: 1 on 07/06/2022 by Ottoniel Ba MD at [facility] Left: Hip [employer] 01/13/2032 1217-25-500 / / [id number] [employer] [place] 99mm Collar Hip 2 01/26 High Offset Taper Stem Femoral [id number] - [id number] Implanted:Qty: 1 on 07/06/2022 by Ottoniel Ba MD at [facility] Left: Hip [employer] 02/13/2032 [id number] / / [id number] [employer] Articul/[place] 36mm Cementless Hip +8.5mm 12/14 Taper Head Femoral Latex Free 1362-36330 - [id number] Implanted:Qty: 1 on 07/06/2022 by Ottoniel Ba MD at [facility] Left: Hip [employer] 05/14/2027 1365-36-330 / / [id number] [employer] Articul/[place] 36mm Cementless Hip +8.5mm 12/14 Taper Head Femoral Latex Free 1360-36330 - [id number] Implanted:Qty: 1 on 11/01/2023 by Ottoniel Ba MD at [facility] Right: Hip [employer] [id number] 08/12/2028 1366-36330 / / [id number] [employer] [place] 54mm Sector Hip Shell Acetabular Gription Sterile Latex Free [id number] - [id number] Implanted:Qty: 1 on 11/01/2023 by Ottoniel Ba MD at [facility] Right: Hip [employer] [id number] 07/13/2033 [id number] / / [id number] [employer] [place] 54mm 36mm Hip Neutral Liner Acetabular Altrx Sterile Latex Free [id number] - [id number] Implanted:Qty: 1 on 11/01/2023 by Ottoniel Ba MD at [facility] Right: Hip [employer] [id number] 09/12/2028 [id number] / / [id number] [employer] [place] 6.5mm 25mm Acetabular Cancellous Screw Bone Sterile 1217-25-500 - [id number] Implanted:Qty: 1 on 11/01/2023 by Ottoniel Ba MD at [facility] Right: Hip [employer] [id number] 07/13/2033 1217-25-500 / / [id number] [employer] [place] 99mm Collar Hip 2 01/26 High Offset Taper Stem Femoral [id number] - [id number] Implanted:Qty: 1 on 11/01/2023 by Ottoniel Ba MD at [facility] Right: Hip [employer] [id number] 03/15/2032 [id number] / / [id number] Insurance AET[place] BETTER [place] AET[place] BET[place] TH [place] Advance Directives For more information, please contact: [phone] * Full Code (Latest Code Status on File) Date Activated Date Inactivated Comments 11/01/2023 10:36 AM 11/01/2023 7:05 PM * Full Code Date Activated Date Inactivated Comments 07/06/2022 12:22 PM 07/06/2022 7:53 PM Care Teams Liquid Loader Relationship Specialty Start Date End Date Jordan Mann MD PCP - General Internal Medicine 10/23/21 Ottoniel Ba MD [address] [place] [address] [address] [place] [address] Surgeon Orthopedic Surgery 07/06/22
--- OUTSIDE RECORDS SUMMARY | 2024-07-16 21:45 | XMS_ITS | Clinical Summary ---
Author Organization [facility] Address [address] [place] [address] Care Team Providers Care Therapist Name Role Phone Jordan Mann MD Primary Care Provider [phone] Ottoniel Ba MD Unavailable [phone] Allergies Active Allergy Reactions Criticality Noted Date [...] 03/03/2017 Assessment & Plan (04/04/2017 9:22 AM NURSE ASSISTANT): Differential diagnosis would include benign nodule (macrofollicular or adenomatoid/hyperplastic nodules, colloid adenomas, nodular goiter, and Richelle's thyroiditis) vs thyroid carcinoma ( follicular , papillary ) FNA indicated and performed If benign, will follow up with serial ultrasound Otherwise, patient to follow up with Dr Martinez to consider surgery . Assessment & Plan (03/03/2017 12:22 PM NURSE ASSISTANT): Patient is noted to have a dominant [...] on file Legal Sex Female 3:18 PM NURSE ASSISTANT Gender Identity Female 04/19/2023 11:37 AM NURSE ASSISTANT Sexual Orientation Straight 04/19/2023 11 :37 AM NURSE ASSISTANT Obstetrics History Last Filed Vital Signs Vital Sign Reading Time Taken Comments Blood Pressure 122/79 01/23/2024 11:35 AM NURSE ASSISTANT Pulse 80 01/23/2024 11:35 AM NURSE ASSISTANT Temperature 36.4 C (97.6 F) 01/17/2024 3:00 PM NURSE ASSISTANT Respiratory Rate 18 01/17/2024 3:00 PM NURSE ASSISTANT Oxygen Saturation 99% 01/17/2024 3:00 PM NURSE ASSISTANT Inhaled Oxygen Concentration - - Weight 105.7 kg (233 lb) 01/23/2024 11:35 AM NURSE ASSISTANT Height 175.3 cm (5' 9) 01/23/2024 11:35 AM NURSE ASSISTANT Body Mass Index 34.41 01/23/2024 11:35 AM NURSE ASSISTANT Plan of Treatment Health Maintenance Due Date [...] this topic Medical Devices Implanted Type Area Slat Basket Maker Machine Device Identifier Shelf Expiration Date Model / Serial / Lot [employer] [place] 56mm Sector Hip Shell Acetabular Gription Sterile Latex Free [id number] - [id number] Implanted:Qty: 1 on 07/06/2022 by Ottoniel Ba MD at [facility] Left: Hip [employer] 05/13/2032 [id number] / / [id number] [employer] [place] 56mm 36mm Hip Neutral Liner Acetabular Altrx Sterile Latex Free [id number] - [id number] Implanted:Qty: 1 on 07/06/2022 by Ottoniel Ba MD at [facility] Left: Hip [employer] 04/13/2027 [id number] / / [id number] [employer] [place] 6.5mm 25mm Acetabular Cancellous Screw Bone Sterile 1217-25-500 - [id number] Implanted:Qty: 1 on 07/06/2022 by Ottoniel Ba MD at [facility] Left: Hip [employer] 01/13/2032 1217-25-500 / / [id number] [employer] [place] 99mm Collar Hip 2 01/26 High Offset Taper Stem Femoral [id number] - [id number] Implanted:Qty: 1 on 07/06/2022 by Ottoniel Ba MD at [facility] Left: Hip [employer] 02/13/2032 [id number] / / [id number] [employer] Articul/Grant 36mm Cementless Hip +8.5mm 12/14 Taper Head Femoral Latex Free 1365-36330 - [id number] Implanted:Qty: 1 on 07/06/2022 by Ottoniel Ba MD at [facility] Left: Hip [employer] 05/14/2027 1365-36-330 / / [id number] [employer] Articul/Grant 36mm Cementless Hip +8.5mm 12/14 Taper Head Femoral Latex Free 1365-36-330 - [id number] Implanted:Qty: 1 on 11/01/2023 by Ottoniel Ba MD at [facility] Right: Hip [employer] [id number] 08/12/2028 1365-36-330 / / [id number] [employer] [place] 54mm Sector Hip Shell Acetabular Gription Sterile Latex Free [id number] - [id number] Implanted:Qty: 1 on 11/01/2023 by Ottoniel Ba MD at [facility] Right: Hip [employer] [id number] 07/13/2033 [id number] / / [id number] [employer] [place] 54mm 36mm Hip Neutral Liner Acetabular Altrx Sterile Latex Free [id number] - [id number] Implanted:Qty: 1 on 11/01/2023 by Ottoniel Ba MD at [facility] Right: Hip [employer] [id number] 09/12/2028 [id number] / / [id number] [employer] [place] 6.5mm 25mm Acetabular Cancellous Screw Bone Sterile 1217-25-500 - [id number] Implanted:Qty: 1 on 11/01/2023 by Ottoniel Ba MD at [facility] Right: Hip [employer] [id number] 07/13/2033 1217-25-500 / / [id number] [employer] [place] 99mm Collar Hip 2 01/26 High Offset Taper Stem Femoral [id number] - [id number] Implanted:Qty: 1 on 11/01/2023 by Ottoniel Ba MD at [facility] Right: Hip [employer] [id number] 03/15/2032 [id number] / / [id number] Insurance AETNA [facility] IDPA AETNA [place] Advance Directives For more information, please contact: [phone] * Full Code (Latest Code Status on File) Date Activated Date Inactivated Comments 11/01/2023 10:36 AM 11/01/2023 7:05 PM * Full Code Date Activated Date Inactivated Comments 07/06/2022 12:22 PM 07/06/2022 7:53 PM Care Teams Therapist Relationship Specialty Start Date End Date Jordan Mann MD PCP - General Internal Medicine 10/23/21 Ottoniel Ba MD [address] [facility] [address] [place] [address] Surgeon Orthopedic Surgery 07/06/22
--- OUTSIDE RECORDS SUMMARY | 2024-07-16 21:45 | XMS_ITS | Encounter Summary ---
Author Organization [facility] Address [address] [place] [address] Care Team Providers Care Property Management Assistant Name Role Phone Jordan Mann MD Primary Care Provider Ottoniel Ba MD Unavailable Reason for Visit * Reason Onset Date Comments Appointment Reminder Call 03/31/2022 Confir med Encounter Details Date Type Department Care Team (Late st Contact Info) Description 03/31/2022 Telephone [facility] [address] [place] [address] Yodit Patel RT Appointment Reminder Call (Confirmed ) Social History Tobacco Use Types Packs/Day Years Used Date Smoking Tobacco: Former Cigarettes Q uit: 09/13/2016 Smokeless Tobacco: Never Alcohol Use Standard Drinks/Week Comments Yes 0 (1 standard drink = 0.6 oz pur e alcohol) Comments Unknown Sex and Gender Information Value Date Recorded Sex Assigned at Not on file Legal Sex Female 3:18 PM SALON SALES CONSULTANT Gender Identity Female 04/19/2023 11:37 AM SALON SALES CONSULTANT Sexual Orientation Straight 04/19/2023 11 :37 AM SALON SALES CONSULTANT documented as of this encounter Plan of Treatment Not on file documented as of this encounter Visit Diagnoses Not on filedocumented in this encounter Care Teams Property Management Assistant Relationship Specialty Start Date End Date Jordan Mann MD PCP - General Internal Medicine 10/23/21 Ottoniel Ba MD [address] [place] [address] [address] [place] [address] Surgeon Orthopedic Surgery 07/06/22 documented as of this encounter
--- OUTSIDE RECORDS SUMMARY | 2024-07-16 21:45 | XMS_ITS | Encounter Summary ---
Author Organization [facility] Address [address] [place] [address] Phone Care Team Providers Care Mill Order Scheduler Name Role Phone Jordan Mann MD Primary Care Provider [phone] Jordan Mann MD Primary Care Provider [phone] Ottoniel Ba MD Unavailable [phone] Encounter Details Date Type Department Care Team (Late st Contact Info) Description 04/04/2017 Orders Only [facility] ProviderJoe MD [address] [place] [address] Social History Tobacco Use Types Packs/Day Years Used Date Smoking Tobacco: Former Cigarettes Q uit: 09/13/2016 Smokeless Tobacco: Never Alcohol Use Standard Drinks/Week Comments Yes 0 (1 standard drink = 0.6 oz pur e alcohol) Comments Unknown Sex and Gender Information Value Date Recorded Sex Assigned at Not on file Legal Sex Female 3:18 PM SLAGGER Gender Identity Female 04/19/2023 11:37 AM SLAGGER Sexual Orientation Straight 04/19/2023 11 :37 AM SLAGGER documented as of this encounter Plan of Treatment Not on file documented as of this encounter Procedures Procedure Name Priority Date/Time Associated Diagnosis Comments CYTOLOGY 04/04/2017 12:00 AM SLAGGER documented in this encounter Results * CYTOLOGY (04/04/2017 12:00 AM SLAGGER) Narrative 04/04/2017 12:00 AM SLAGGER Ordered by an unspecified provider. us Historical Provider LAB CYTOLOGY ORDERABLES F inal Result documented in this encounter Visit Diagnoses Not on filedocumented in this encounter Care Teams Mill Order Scheduler Relationship Specialty Start Date End Date Jordan aMnn MD PCP - General Internal Medicine 02/01/17 10/22/21 Jordan Mann MD PCP - General Internal Medicine 10/23/21 Ottoniel Ba MD [address] [place] [address] [place] [address] Surgeon Orthopedic Surgery 07/06/22 documented as of this encounter
--- OUTSIDE RECORDS SUMMARY | 2024-07-16 21:45 | XMS_ITS | Clinical Summary ---
Author Organization [facility] Address [address] [place] [address] Phone Care Team Providers Care Rubber Attacher Name Role Phone Jordan Mann MD Primary Care Provider [phone] Amita Armstrong MD Unavailable Allergies Active Allergy Reactions Criticality Noted Date Comments Morphine Hives 03/03/2017 Wound Dressing Adhesive Itching Low 01/17/2024 Medications sertraline (ZOLOFT) 50 MG Tablet 11/15/2021 Active ondansetron (ZOFRAN-ODT) 8 MG TABLET DISPERSIBLE [...] 3 Tablets by mouth daily. 270 Tablet 06/13/2024 Active Active Problems Problem Noted Date Diagnosed Date Thyroid nodule 11/12/2018 Class 1 obesity due to exces s calories without serious comorbidity with body mass index (BMI) of 31.0 to 31.9 in adult 11/12/2018 Encounters Date Type Department Care Team Description 07/11/2024 9:15 AM CDT Office Visit [facility] [address] [place] [address] Amita Armstrong MD Subclinical hyperthyroidism (Primary Dx); Toxic thyroid nodule; Thyroid nodule; Class 1 obesity due to excess calories with serious comorbidity and body mass index (BMI) of 34.0 to 34.9 in adult Discharge Disposition: Discharged to home or Selfcare 07/11/2024 Travel 06/13/2024 MyChart RX Renewal [facility] [address] [place] [address] Amita Armstrong MD Medication Renewal Reviewed from [...] Sign Reading Time Taken Comments Blood Pressure 132/82 07/11/2024 9:01 AM CDT Pulse 54 07/11/2024 9:01 AM CDT Temperature 36.3 C (97.4 F) 07/11/2024 9:01 AM CDT Respiratory Rate 20 07/11/2024 9:01 AM CDT Oxygen Saturation 99% 07/11/2024 9:01 AM CDT Inhaled Oxygen Concentration - - Weight 104.9 kg (231 lb 3.2 oz) 07/11/2024 9:01 AM CDT Height 175.3 cm (5' 9) 07/11/2024 9:01 AM CDT Body Mass Index 34.14 07/11/2024 9:01 AM CDT Plan of Treatment Upcoming Encounters Date Type Department Care Team (Late st Contact Info) Description 01/16/2025 9:30 AM EVALUATION ASSISTANT Office Visit [facility] [place] [address] [place] [phone] Amita Armstrong MD [address] [phone] Health Maintenance Due Date Last Done Comments Mammogram 1980 HPV/Cotest 2010 Hepatitis B Immunization (3 of 3 - 19+ 3-dose series) 12/22/2018 07/18/2018, 06/21/2018 Discussion re Starting/Frequency of Mammograms 2020 Cervical Cancer Screening (CCS) 07/15/2022 Pap Smear 07/15/2022 07/16/2019 SARS-COV-2 Immunization ( season) 2023 Influenza Immunization (Season Ended) 2024 11/13/2019 Td Immunization Every 10 Years (Adults With 1 Tdap) 06/27/2034 06/27/2024, 04/21/2021, 09/13/2019, Additional history exists Respiratory Syncytial Virus (RSV) Immunization (Adult) (1 - 1-dose 75+ series) 05/29/2055 Hepatitis C Virus (HCV) Screening Completed 01/04/2021 DTaP/Tdap/Td Immunization Discontinued 2024, 04/21/2021, 09/13/2019, Additional history exists Human Papillomavirus (HPV) Immunization Aged Out No [...] to complete this topic Insurance MEDICAID [facility]NA [facility] Care Teams Rubber Attacher Relationship Specialty Start Date End Date Jordan Mann MD [address] [place], [place] [id number] PCP - General Internal Medicine 09/12/18 Amita Armstrong MD [address] [address] Consulting Physician Endocrinology 12/07/21
[2024-07-16 21:53] VITALS: BP 138/89; PULSE 81; RESP 14; TEMP 36.6; O2SAT 96
--- NOTE | 2024-07-16 22:27 | ED.SKABFB ---
HPI - Skin/Abscess/Foreign Bdy General Chief complaint: Skin/Abscess/Foreign Body Stated complaint: Bug Bite on R forearm Time Seen by Provider: 07/16/24 22:27 Source: patient and family Mode of arrival: ambulatory Limitations: no limitations History of Present Illness HPI narrative: patient is a 44-year-old female with a right upper extremity forearm rash and redness after getting bit by deer flies. She gets this way any time bit by this same insect. She is having pain and swelling of the right upper extremity after the bite by the flies. complaint: rash Onset (ago): hour(s) ( Three) Tetanus up to date: yes Location: RUE ( forearm) Severity: moderate Severity scale (1-10): 5 Quality: burning, aching and sharp Pain Consistency: constant Relieving factors: none Exacerbating factors: none Context: witnessed insect bite Associated symptoms: denies other symptoms Treatments prior to arrival: none Related Data Allergies Allergy/AdvReac Type Severity Reaction Status Date / Time morphine Allergy Severe Hives Verified 06/27/24 19:34 Review of Systems Review of Systems: All systems reviewed & are unremarkable except as noted in HPI and below Constitutional: Constitutional: Reports no additional constitutional complaints Eyes: Eyes: Reports no additional eye complaints ENT: Reports system reviewed and no additional complaints, except as documented Cardiovascular: Cardiovascular: Reports no additional cardiovascular complaints Respiratory: Respiratory: Reports no additional respiratory complaints Gastrointestinal: Gastrointestinal: Reports no additional gastrointestinal complaints Genitourinary: Genitourinary: Reports no additional female genitourinary complaints Musculoskeletal: Musculoskeletal: Reports no additional musculoskeletal complaints Integumentary/Breasts: Skin/Breast: Reports system reviewed and no additional complaints, except as docu Neurologic: Reports system reviewed and no additional complaints, except as documented Psychiatric: Psychiatric: Reports no additional psychiatric complaints Endocrine: Endocrine: Reports no additional endocrine complaints Hematologic/Lymphatic: Hematologic/Lymphatic: Reports no additional hematologic/lymphatic complaints Allergic/Immunologic: Allergic/Immunologic: Reports no additional allergic/immunologic complaints PMFSH Past Medical History Medical History Patient denies medical problems Exam Const: General: healthy appearing Nutritional Appearance: well nourished Orientation/consciousness: patient oriented x3 HENMT: Head: normal to inspection Ears: external ears normal Face/Nose/Sinus: Normal external nose present Eyes: Conjunctivae: conjunctivae normal Pupils: Equal, round and reactive pupils present EOM: EOMs intact bilaterally Neck: Neck: normal visual inspection Chest: Chest palpation & inspection: normal inspection of the chest Resp: Effort & Inspection: normal respiratory effort and not labored Auscultation: clear to auscultation bilaterally and no crackles Cardio: Rate: regular rate Rhythm: regular rhythm Heart sounds: no murmurs GI: Inspection: non-distended Auscultation: normal bowel sounds : General: Yes bladder normal to palpation Back/Spine/Pelvis: Back: no CVA tenderness Skin: General skin exam: normal color Rashes: rash noted Wounds: no wounds Other: right upper extremity forearm has erythema from the elbow to the wrist partially circumferentially but not completely with a nidus of deer fly bite; distal neurovascular intact grossly; generalized swelling of the right upper extremity at the forearm region Neuro: General: patient oriented x3 Cranial nerves: Yes Nystagmus not present Speech: normal speech Gait exam (Neuro): Normal gait present Extrem: General: normal to inspection Psych: Mental Status: mental status grossly normal Affect: normal affect Attitude: cooperative Course Vital Signs Vital signs: Vital Signs Temperature 36.6 C 07/16/24 21:53 Pulse Rate 81 07/16/24 21:53 Respiratory Rate 14 07/16/24 21:53 Blood Pressure 138/89 07/16/24 21:53 Pulse Oximetry 96 07/16/24 21:53 Oxygen Delivery Room Air 07/16/24 21:53 Temperature 36.6 C 07/16/24 21:53 Pulse Rate 81 07/16/24 21:53 Respiratory Rate 14 07/16/24 21:53 Blood Pressure 138/89 07/16/24 21:53 Pulse Oximetry 96 07/16/24 21:53 Oxygen Delivery Room Air 07/16/24 21:53 MDM - Skin/Abscess/Foreign Bdy MDM Narrative Medical decision making narrative: patient is a 44-year-old female with right upper extremity swelling and pain after insect bite. Use dexamethasone IM and Keflex. Discharge Plan Discharge Clinical Impression: Cellulitis, Allergic reaction, Insect bite Patient Disposition: Home Condition: Stable Instructions: Antibiotic Form, Cellulitis (ED), General Allergic Reaction (ED) Patient Language: Bengali Prescriptions: New cephalexin 500 mg capsule 500 mg PO BID 7 Days Qty: 14 0RF prednisone 20 mg tablet 20 mg PO DAILY Qty: 3 0RF No Action amoxicillin-pot clavulanate [Augmentin] 500-125 mg tablet 1 tablet PO TID Qty: 30 0RF prednisone 20 mg tablet 20 mg PO DAILY 5 Days Qty: 5 0RF Follow-up/Referrals: Jordan Mann MD [Primary Care Provider] - Time of Disposition: 23:07
--- OUTSIDE RECORDS SUMMARY | 2024-07-16 22:32 | XMS_ITS | Encounter Summary ---
Author Organization [facility] Address [address] [place] [address] Phone Care Team Providers Care Internal Combustion Engine Inspector Name Role Phone Jordan Mann MD Primary Care Provider [phone] Jordan Mann MD Primary Care Provider [phone] Ottoniel Ba MD Unavailable [phone] Encounter Details Date Type Department Care Team (Late st Contact Info) Description 04/04/2017 Orders Only [facility] ProviderJoe MD [address] [place] [address] Social History Tobacco Use Types Packs/Day Years Used Date Smoking Tobacco: Former Cigarettes Q uit: 09/13/2016 Smokeless Tobacco: Never Alcohol Use Standard Drinks/Week Comments Yes 0 (1 standard drink = 0.6 oz pur e alcohol) Comments Unknown Sex and Gender Information Value Date Recorded Sex Assigned at Not on file Legal Sex Female 3:18 PM MESSAGE CLERK Gender Identity Female 04/19/2023 11:37 AM MESSAGE CLERK Sexual Orientation Straight 04/19/2023 11 :37 AM MESSAGE CLERK documented as of this encounter Plan of Treatment Not on file documented as of this encounter Procedures Procedure Name Priority Date/Time Associated Diagnosis Comments CYTOLOGY 04/04/2017 12:00 AM MESSAGE CLERK documented in this encounter Results * CYTOLOGY (04/04/2017 12:00 AM MESSAGE CLERK) Narrative 04/04/2017 12:00 AM MESSAGE CLERK Ordered by an unspecified provider. us Historical Provider LAB CYTOLOGY ORDERABLES F inal Result documented in this encounter Visit Diagnoses Not on filedocumented in this encounter Care Teams Internal Combustion Engine Inspector Relationship Specialty Start Date End Date Jordan Mann MD PCP - General Internal Medicine 02/01/17 10/22/21 Jordan Mann MD PCP - General Internal Medicine 10/23/21 Ottoniel Ba MD [address] [place] [address] [place] [address] Surgeon Orthopedic Surgery 07/06/22 documented as of this encounter
--- OUTSIDE RECORDS SUMMARY | 2024-07-16 22:32 | XMS_ITS | Referral Summary ---
Author Organization [facility] Address [address] [place] [address] Care Team Providers Care Talent Program Manager Name Role Phone Jordan Mann MD Primary Care Provider [phone] Ottoniel Ba MD Unavailable [phone] Allergies Active Allergy Reactions Criticality Noted Date [...] 03/03/2017 Assessment & Plan (04/04/2017 9:22 AM RUBBERIZING MECHANIC): Differential diagnosis would include benign nodule (macrofollicular or adenomatoid/hyperplastic nodules, colloid adenomas, nodular goiter, and Richelle's thyroiditis) vs thyroid carcinoma ( follicular , papillary ) FNA indicated and performed If benign, will follow up with serial ultrasound Otherwise, patient to follow up with Dr Martinez to consider surgery . Assessment & Plan (03/03/2017 12:22 PM RUBBERIZING MECHANIC): Patient is noted to have a dominant [...] on file Legal Sex Female 3:18 PM RUBBERIZING MECHANIC Gender Identity Female 04/19/2023 11:37 AM RUBBERIZING MECHANIC Sexual Orientation Straight 04/19/2023 11 :37 AM RUBBERIZING MECHANIC Last Filed Vital Signs Vital Sign Reading Time Taken Comments Blood Pressure 122/79 01/23/2024 11:35 AM RUBBERIZING MECHANIC Pulse 80 01/23/2024 11:35 AM RUBBERIZING MECHANIC Temperature 36.4 C (97.6 F) 01/17/2024 3:00 PM RUBBERIZING MECHANIC Respiratory Rate 18 01/17/2024 3:00 PM RUBBERIZING MECHANIC Oxygen Saturation 99% 01/17/2024 3:00 PM RUBBERIZING MECHANIC Inhaled Oxygen Concentration - - Weight 105.7 kg (233 lb) 01/23/2024 11:35 AM RUBBERIZING MECHANIC Height 175.3 cm (5' 9) 01/23/2024 11:35 AM RUBBERIZING MECHANIC Body Mass Index 34.41 01/23/2024 11:35 AM RUBBERIZING MECHANIC Plan of Treatment Not on file Medical Devices Implanted Type Area Founder Device Identifier Shelf Expiration Date Model / Serial / Lot [employer] Leoti 56mm Sector Hip Shell Acetabular Gription Sterile Latex Free [id number] - [id number] Implanted:Qty: 1 on 07/06/2022 by Ottoniel Ba MD at [facility] Left: Hip [employer] 05/13/2032 [id number] / / [id number] [employer] Leoti 56mm 36mm Hip Neutral Liner Acetabular Altrx Sterile Latex Free [id number] - [id number] Implanted:Qty: 1 on 07/06/2022 by Ottoniel Ba MD at [facility] Left: Hip [employer] 04/13/2027 [id number] / / [id number] [employer] Leoti 6.5mm 25mm Acetabular Cancellous Screw Bone Sterile 1217-25-500 - [id number] Implanted:Qty: 1 on 07/06/2022 by Ottoniel Ba MD at [facility] Left: Hip [employer] 01/13/2032 1217-25-500 / / [id number] [employer] Actis 99mm Collar Hip 2 01/26 High Offset Taper Stem Femoral [id number] - [id number] Implanted:Qty: 1 on 07/06/2022 by Ottoniel Ba MD at [facility] Left: Hip [employer] 02/13/2032 [id number] / / [id number] [employer] Articul/Grant 36mm Cementless Hip +8.5mm 12/14 Taper Head Femoral Latex Free 1362-36330 - [id number] Implanted:Qty: 1 on 07/06/2022 by Ottoniel Ba MD at [facility] Left: Hip [employer] 05/14/2027 1365-36-330 / / [id number] [employer] Articul/Grant 36mm Cementless Hip +8.5mm 12/14 Taper Head Femoral Latex Free 1369-36330 - [id number] Implanted:Qty: 1 on 11/01/2023 by Ottoniel Ba MD at [facility] Right: Hip [employer] [id number] 08/12/2028 1363-36330 / / [id number] [employer] Leoti 54mm Sector Hip Shell Acetabular Gription Sterile Latex Free [id number] - [id number] Implanted:Qty: 1 on 11/01/2023 by Ottoniel Ba MD at [facility] Right: Hip [employer] [id number] 07/13/2033 [id number] / / [id number] [employer] Leoti 54mm 36mm Hip Neutral Liner Acetabular Altrx Sterile Latex Free [id number] - [id number] Implanted:Qty: 1 on 11/01/2023 by Ottoniel Ba MD at [facility] Right: Hip [employer] [id number] 09/12/2028 [id number] / / [id number] [employer] Leoti 6.5mm 25mm Acetabular Cancellous Screw Bone Sterile 1217-25-500 - [id number] Implanted:Qty: 1 on 11/01/2023 by Ottoniel Ba MD at [facility] Right: Hip [employer] [id number] 07/13/2033 1217-25-500 / / [id number] [employer] Actis 99mm Collar Hip 2 01/26 High Offset Taper Stem Femoral [id number] - [id number] Implanted:Qty: 1 on 11/01/2023 by Ottoniel Ba MD at [facility] Right: Hip [employer] [id number] 03/15/2032 [id number] / / [id number] Insurance A[place] Advance Directives For more information, please contact: [phone] * Full Code (Latest Code Status on File) Date Activated Date Inactivated Comments 11/01/2023 10:36 AM 11/01/2023 7:05 PM * Full Code Date Activated Date Inactivated Comments 07/06/2022 12:22 PM 07/06/2022 7:53 PM Care Teams Talent Program Manager Relationship Specialty Start Date End Date Jordan Mann MD PCP - General Internal Medicine 10/23/21 Ottoniel Ba MD [address] [place] [address] [address] [place] [address] Surgeon Orthopedic Surgery 07/06/22
--- OUTSIDE RECORDS SUMMARY | 2024-07-16 22:32 | XMS_ITS | Clinical Summary ---
Author Organization [facility] Address [address] [place] [address] Phone Care Team Providers Care Sock Mender Name Role Phone Jordan Mann MD Primary Care Provider [phone] Amita Armstrong MD Unavailable Allergies Active Allergy [...] Description 07/11/2024 9:15 AM CDT Office Visit [facility] [address] [place] [address] Amita Armstrong MD Subclinical hyperthyroidism (Primary Dx); Toxic thyroid nodule; Thyroid nodule; Class 1 obesity due to excess calories with serious comorbidity and body mass index (BMI) of 34.0 to 34.9 in adult Discharge Disposition: Discharged to home or Selfcare 07/11/2024 Travel 06/13/[address] [facility] [address] [place] [address] Amita Armstrong MD Medication Renewal Reviewed from [...] st Contact Info) Description 01/16/2025 9:30 AM SENIOR ELECTRICAL DESIGN ENGINEER Office Visit [facility] - [place] [address] [place] [address] Amita Armstrong MD [address] [phone] Health Maintenance Due Date Last Done Comments [...] to complete this topic Insurance MEDICAID AETNA [facility] Care Teams Sock Mender Relationship Specialty Start Date End Date Jordan Mann MD [address] [place], [place] [address] PCP - General Internal Medicine 09/12/18 Amita Armstrong MD [address] [address] Consulting Physician Endocrinology 12/07/21
--- OUTSIDE RECORDS SUMMARY | 2024-07-16 22:32 | XMS_ITS | Encounter Summary ---
Author Organization [facility] Address [address] [place] [address] Care Team Providers Care Oil Well Cable Tool Driller Name Role Phone Jordan Mann MD Primary Care Provider [phone] Ottoniel Ba MD Unavailable [phone] Reason for Visit * Reason Onset Date Comments Appointment Reminder Call 03/31/2022 Confir med Encounter Details Date Type Department Care Team (Late st Contact Info) Description 03/31/2022 Telephone [facility] [address] [place] [address] Yodit Patel RT Appointment Reminder Call (Confirmed ) Social History Tobacco Use Types Packs/Day Years Used Date Smoking Tobacco: Former Cigarettes Q uit: 09/13/2016 Smokeless Tobacco: Never Alcohol Use Standard Drinks/Week Comments Yes 0 (1 standard drink = 0.6 oz pur e alcohol) Comments Unknown Sex and Gender Information Value Date Recorded Sex Assigned at Not on file Legal Sex Female 3:18 PM REAL ESTATE PROCESSOR Gender Identity Female 04/19/2023 11:37 AM REAL ESTATE PROCESSOR Sexual Orientation Straight 04/19/2023 11 :37 AM REAL ESTATE PROCESSOR documented as of this encounter Plan of Treatment Not on file documented as of this encounter Visit Diagnoses Not on filedocumented in this encounter Care Teams Oil Well Cable Tool Driller Relationship Specialty Start Date End Date Jordan Mann MD PCP - General Internal Medicine 10/23/21 Ottoniel Ba MD [address] [place] [address] [address] [place] [address] Surgeon Orthopedic Surgery 07/06/22 documented as of this encounter
--- OUTSIDE RECORDS SUMMARY | 2024-07-16 22:32 | XMS_ITS | Clinical Summary ---
Author Organization [facility] Address [address] [place] [address] Care Team Providers Care Job Estimator Name Role Phone Jordan Mann MD Primary Care Provider [phone] Ottoniel Ba MD Unavailable [phone] Allergies Active Allergy Reactions Criticality Noted Date [...] 03/03/2017 Assessment & Plan (04/04/2017 9:22 AM MOLD CLOSER): Differential diagnosis would include benign nodule (macrofollicular or adenomatoid/hyperplastic nodules, colloid adenomas, nodular goiter, and Richelle's thyroiditis) vs thyroid carcinoma ( follicular , papillary ) FNA indicated and performed If benign, will follow up with serial ultrasound Otherwise, patient to follow up with Dr Martinez to consider surgery . Assessment & Plan (03/03/2017 12:22 PM MOLD CLOSER): Patient is noted to have a dominant [...] on file Legal Sex Female 3:18 PM MOLD CLOSER Gender Identity Female 04/19/2023 11:37 AM MOLD CLOSER Sexual Orientation Straight 04/19/2023 11 :37 AM MOLD CLOSER Obstetrics History Last Filed Vital Signs Vital Sign Reading Time Taken Comments Blood Pressure 122/79 01/23/2024 11:35 AM MOLD CLOSER Pulse 80 01/23/2024 11:35 AM MOLD CLOSER Temperature 36.4 C (97.6 F) 01/17/2024 3:00 PM MOLD CLOSER Respiratory Rate 18 01/17/2024 3:00 PM MOLD CLOSER Oxygen Saturation 99% 01/17/2024 3:00 PM MOLD CLOSER Inhaled Oxygen Concentration - - Weight 105.7 kg (233 lb) 01/23/2024 11:35 AM MOLD CLOSER Height 175.3 cm (5' 9) 01/23/2024 11:35 AM MOLD CLOSER Body Mass Index 34.41 01/23/2024 11:35 AM MOLD CLOSER Plan of Treatment Health Maintenance Due Date [...] this topic Medical Devices Implanted Type Area Planning Aide Device Identifier Shelf Expiration Date Model / Serial / Lot [employer] [place] Light 56mm Sector Hip Shell Acetabular Gription Sterile Latex Free [id number] - Implanted:Qty: 1 on 07/06/2022 by Ottoniel Ba MD at [facility] Left: Hip [employer] 05/13/2032 [id number] / / [id number] [employer] [place] Light 56mm 36mm Hip Neutral Liner Acetabular Altrx Sterile Latex Free [id number] - [id number] Implanted:Qty: 1 on 07/06/2022 by Ottoniel Ba MD at [facility] Left: Hip [employer] 04/13/2027 [id number] / / [id number] [employer] [place] Light 6.5mm 25mm Acetabular Cancellous Screw Bone Sterile 1217-25-500 - [id number] Implanted:Qty: 1 on 07/06/2022 by Ottoniel Ba MD at [facility] Left: Hip [employer] 01/13/2032 1217-25-500 / / [id number] [employer] Actis 99mm Collar Hip 2 01/26 High Offset Taper Stem Femoral [id number] - [id number] Implanted:Qty: 1 on 07/06/2022 by Ottoniel Ba MD at [facility] Left: Hip [employer] 02/13/2032 [id number] / / [id number] [employer] Articul/Grant 36mm Cementless Hip +8.5mm 12/14 Taper Head Femoral Latex Free 1365-36330 - [id number] Implanted:Qty: 1 on 07/06/2022 by Ottoniel Ba MD at [facility] Left: Hip [employer] 05/14/2027 1365-36-330 / / [id number] [employer] Articul/Grant 36mm Cementless Hip +8.5mm 12/14 Taper Head Femoral Latex Free 1365-36-330 - [id number] Implanted:Qty: 1 on 11/01/2023 by Ottoniel Ba MD at [facility] Right: Hip [employer] [id number] 08/12/2028 1365-36-330 / / [id number] [employer] [place] Light 54mm Sector Hip Shell Acetabular Gription Sterile Latex Free [id number] - [id number] Implanted:Qty: 1 on 11/01/2023 by Ottoniel Ba MD at [facility] Right: Hip [employer] [id number] 07/13/2033 [id number] / / [id number] [employer] [place] Light 54mm 36mm Hip Neutral Liner Acetabular Altrx Sterile Latex Free [id number] - [id number] Implanted:Qty: 1 on 11/01/2023 by Ottoniel Ba MD at [facility] Right: Hip [employer] [id number] 09/12/2028 [id number] / / [id number] [employer] [place] Light 6.5mm 25mm Acetabular Cancellous Screw Bone Sterile 1217-25-500 - [id number] Implanted:Qty: 1 on 11/01/2023 by Ottoniel Ba MD at [facility] Right: Hip [employer] [id number] 07/13/2033 1217-25-500 / / [id number] [employer] Actis 99mm Collar Hip 2 01/26 High Offset Taper Stem Femoral [id number] - [id number] Implanted:Qty: 1 on 11/01/2023 by Ottoniel Ba MD at [facility] Right: Hip [employer] [id number] 03/15/2032 [id number] / / [id number] Insurance [employer] [facility] [place] [employer] [place] Advance Directives For more information, please contact: [phone] * Full Code (Latest Code Status on File) Date Activated Date Inactivated Comments 11/01/2023 10:36 AM 11/01/2023 7:05 PM * Full Code Date Activated Date Inactivated Comments 07/06/2022 12:22 PM 07/06/2022 7:53 PM Care Teams Job Estimator Relationship Specialty Start Date End Date Jordan Mann MD PCP - General Internal Medicine 10/23/21 Ottoniel Ba MD [address] [facility] [address] [place] [address] Surgeon Orthopedic Surgery 07/06/22
[2024-07-16] MEDS: dexAMETHasone SOD PHOS INJ 10 MG/ML 1 ML VIAL IM (23:03)
[2024-07-16] MEDS: CEPHALEXIN 500 MG CAPSULE PO (23:03)
== END 2024-07-16 23:14 | disposition home or self-care (01) ==
PROVIDERS: Emergency Provider Emergency Medicine; PCP Internal Medicine
DX: L03.90 Cellulitis, unspecified (principal); T78.49XA Other allergy, initial encounter; T14.8XXA Other injury of unspecified body region, initial encounter; W57.XXXA Bitten or stung by nonvenomous insect and other nonvenomous arthropods, initial encounter
CPT/HCPCS: 96372; 99283; A9270; J1100